=== PATIENT | male | born 1970 | race Two or more races ===

== ENCOUNTER 2024-01-27 11:31 | Inpatient (IN) | payer SELFPAY ==
[2024-01-27] VITALS (14 sets, daily range): BP systolic 102–152; BP diastolic 71–97; PULSE 91–111; RESP 16–20; TEMP 36.2–36.9; O2SAT 93–100; BMI 20.3
--- NOTE | 2024-01-27 11:33 | XRR_ITS ---
PROCEDURE INFORMATION: Exam: XR Right Foot Exam date and time: 01/27/2024 12:06 PM Age: 53 years old Clinical indication: Other: RT black big toe; Prior surgery; Surgery date: 6+ months; Surgery type: Right foot; Additional info: Injury, unspecified TECHNIQUE: Imaging protocol: Radiologic exam of the right foot. Views: 3 or more views. COMPARISON: No relevant prior studies available. FINDINGS: Bones/joints: Amputation at the 2nd toe MTP joint. Focal osteopenia of the lateral margin of the great toe distal phalanx. Soft tissues: Soft tissue wound about the great toe distally. XR/XR foot RT min 3V* [id number] IMPRESSION: Suspicion for early osteomyelitis changes of the great toe distal phalanx with surrounding ulcerative soft tissue wound. MRI recommended for further characterization.
--- NOTE | 2024-01-27 13:05 | ED_ITS ---
HPI - Extremity Problem General: Chief complaint: Extremity Injury, Lower Stated complaint: Right foot pain Time Seen by Provider: 01/27/24 12:59 Source: patient Mode of arrival: ambulatory Limitations: no limitations History of Present Illness: 53-year-old male with a history of diabe jose miguel he states that he has had discoloration to his right great toe he states since Friday. He states that he has no pain he had a prior amputation to the second toe of the left foot his toe is necrotic black and foul-smelling. Denies any known injuries. Associated symptoms: Deny chest pain, fever(s) or rash Review of Systems Const: Denies: fever(s), chills, body aches or change in appetite ENMT: Denies: throat pain or dental pain Card: Denies: chest pain Resp: Denies: dyspnea GI: Denies: abdominal pain, nausea, vomiting or diarrhea Musc: Reports: extremity pain; Denies: neck pain or back pain Skin/Breast: Denies: rash Neuro: Denies: headache(s) Physical Exam Const: COMMON NORMALS: no acute distress, patient oriented x3 and healthy appearing HENMT: COMMON NORMALS: normocephalic and atraumatic HEAD & SCALP: normocephalic and atraumatic Neck/C-Spine: COMMON NORMALS: full ROM and supple Chest: COMMONS NORMALS: normal inspection of the chest Resp: COMMON NORMALS: normal respiratory effort Cardio: COMMON NORMALS: regular rate, regular rhythm and No murmurs present (Cardio) RATE: regular rate RHYTHM: regular rhythm Extremity: NARRATIVE EXTREMITY EXAM: Necrotic great red toe with surrounding erythema that is foul-smelling Neuro: COMMON NORMALS: patient oriented x3, moves all extremities and no focal motor deficits Psych: COMMON NORMALS: mental status grossly normal, Normal thought process present and cooperative THOUGHT PROCESS: Normal thought process present Skin: COMMON NORMALS: no rashes or lesions noted and no wounds GENERAL SKIN EXAM: no rashes or lesions noted Course Vital Signs: Vital signs: Vital Signs Temperature 98.0 F 01/27/24 11:39 Pulse Rate 111 H 01/27/24 11:39 Respiratory Rate 16 01/27/24 11:39 Blood Pressure 107/73 01/27/24 11:39 Pulse Oximetry 95 01/27/24 11:39 Oxygen Delivery Me thod Room Air 01/27/24 11:39 MDM - Extremity (Nontraumatic) Medical Decision Making Patient presents here with necrotic toe to right great toe patient was seen in the ER by hospitalist along with podiatry Dr. Schmitt will admit at this time likely go to the OR for toe amputation patient started IV antibiotics. Medical Records I reviewed the patient's medical records. Lab Data I reviewed the patient's lab results. Radiology Impressions Foot X-Ray 01/27/24 11:33 IMPRESSION: Suspicion for early osteomyelitis changes of the great toe distal phalanx with surrounding ulcerative soft tissue wound. MRI recommended for further characterization. All radiology interpretation(s) finalized by discharge Discharge Plan Discharge Patient Disposition: Admitted As Inpatient Clinical Impression: Necrosis of toe Condition: Stable Prescriptions: No Action No Known Home Medications Coding Level of Care Code ED Asset Management Lead for Kimmie Holloway
[2024-01-27 13:32] LABS: Basophils # 0.1 10^3/uL (0.0-0.1); Basophils % 0.6 %; Eosinophils # 0.1 10^3/uL (0.0-0.8); Eosinophils % 0.9 %; Hematocrit 37.1 % (37-53); Lymphocytes # 0.7 10^3/uL (0.8-4.8); Lymphocytes % 6.7 %; Mean Corpuscular HGB Conc 33.4 g/dL (30-55); Mean Corpuscular Hemoglobin 30.8 pg (27-33); Mean Corpuscular Volume 92.3 fl (82-101); Mean Platelet Volume 10.1 fL (7.4-10.4); Monocytes # 1.2 10^3/uL (0.2-0.9); Monocytes % 11.4 %; Neutrophils # 8.47 10^3/uL (1.8-7.7); Nucleated Red Blood Cells % 0 %; Platelet Count 263 10^3/cmm (157-399); Red Blood Count 4.02 10^6/uL (3.85-5.65); Red Cell Distribution Width 12.4 % (12.1-15.1); White Blood Count 10.59 10^3/uL (3.29-11.43)
--- NOTE | 2024-01-27 13:34 | ED_ITS ---
HPI - Extremity Problem 2 General: Chief complaint: Extremity Injury, Lower Stated complaint: Right foot pain Time Seen by Provider: 01/27/24 12:59 Source: patient Mode of arrival: ambulatory Limitations: no limitations History of Present Illness: 53-year-old diabetic male presents with gas gangrene to his right great toe. Patient states that it started 2 days ago and rapidly progressed. Wound appears much older than that, has foul-smelling odor with wet gangrene. He is Wolof- speaking, utilizing an log pond worker at this time in the ED. Patient is known to me last year he underwent a amputation of the right second toe secondary to gangrene, at that point he followed up with me outpatient and went on to heal uneventfully, referral was made for to establish primary care, this is not shown on his current registration, will likely need emergent counts so we can see if he actually followed up with primary care. Associated symptoms: Deny chest pain or fever(s) Review of Systems 2 General: Reports: 10 or more systems reviewed and unremarkable except in HPI and below Const: Denies: fever(s) or chills Eyes: Denies: change in vision Card: Denies: chest pain or palpitations Resp: Denies: dyspnea or productive cough GI: Denies: abdominal pain, nausea or vomiting : Denies: flank pain Musc: Reports: extremity swelling, joint stiffness and deformity Skin/Breast: Reports: erythema, sores, changes in skin color, dry skin, nail changes and change in hair Neuro: Reports: numbness in extremities, sensory changes and difficulty walking Psych: Denies: suicidal ideation Endo: Denies: change in body appearance Bernardo/Lymph: Denies: tender lymph nodes Physical Exam 2 Narrative: EXAM NARRATIVE: GENERAL: Patient is alert and oriented ?3 and in no acute distress. The following is a focused bilateral lower extremity exam. VASCULAR: Dorsalis pedis palpable bilaterally. Posterior tibial arteries palpable. No capillary refill to the distal right hallux. Calf is supple and nontender proximally and distally. Decreased pedal hair growth bilaterally. Edema to the right medial forefoot. NEUROLOGICAL: Protective sensation intact 0/10 sites, tested with [place] Silvia monofilament to bilateral feet. DERMATOLOGICAL: Full-thickness wound probes to bone right hallux with dry eschar distally and wet margins consistent with wet gangrene, has foul malodor, proximal erythema streaking proximally to the dorsum of the midfoot. MUSCULOSKELETAL: History of right second toe amputation. No pain to palpation secondary to neuropathy. Course 2 Vital Signs: Vital signs: Vital Signs Temperature 98.0 F 01/27/24 11:39 Pulse Rate 111 H 01/27/24 11:39 Respiratory Rate 16 01/27/24 11:39 Blood Pressure 107/73 01/27/24 11:39 Pulse Oximetry 95 01/27/24 11:39 Oxygen Delivery Me thod Room Air 01/27/24 11:39 MDM - Extremity (Nontraumatic) Medical Decision Making Wet gangrene right foot Lab Data 01/27/24 13:22 01/27/24 13:22 Radiology Impressions Foot X-Ray 01/27/24 11:33 IMPRESSION: Suspicion for early osteomyelitis changes of the great toe distal phalanx with surrounding ulcerative soft tissue wound. MRI recommended for further characterization. Laboratory Results WBC 10.59 10^3/uL (3.29-11.43) 01/27/24 13:22 RBC 4.02 10^6/uL (3.85-5.65) 01/27/24 13:22 Hgb 12.40 g/dL (11.27-16.99) 01/27/24 13:22 Hct 37.1 % (37-53) 01/27/24 13:22 MCV 92.3 fl (82-101) 01/27/24 13:22 MCH 30.8 pg (27-33) 01/27/24 13:22 MCHC 33.4 g/dL (30-55) 01/27/24 13:22 RDW 12.4 % (12.1-15.1) 01/27/24 13:22 Plt Count 263 10^3/cmm (157-399) 01/27/24 13:22 MPV 10.1 fL (7.4-10.4) 01/27/24 13:22 Neut % (Auto) 80.0 % 01/27/24 13:22 Lymph % (Auto) 6.7 % 01/27/24 13:22 [place] % (Auto) 11.4 % 01/27/24 13:22 Eos % (Auto) 0.9 % 01/27/24 13:22 Baso % (Auto) 0.6 % 01/27/24 13:22 Neut # (Auto) 8.47 10^3/uL (1.8-7.7) H 01/27/24 13:22 Lymph # (Auto) 0.7 10^3/uL (0.8-4.8) L 01/27/24 13:22 [place] # (Auto) 1.2 10^3/uL (0.2-0.9) H 01/27/24 13:22 Eos # (Auto) 0.1 10^3/uL (0.0-0.8) 01/27/24 13:22 Baso # (Auto) 0.1 10^3/uL (0.0-0.1) 01/27/24 13:22 Nucleated RBC % (auto) 0 % 01/27/24 13:22 Nucleated RBCs # 0.0 /100WBC 01/27/24 13:22 ESR 91 mm/hr (0-10) H 01/27/24 13:22 Sodium 126 mmol/L (136-145) L 01/27/24 13:22 Potassium 4.5 mmol/L (3.5-5.1) 01/27/24 13:22 Chloride 86 mmol/L (98-107) L 01/27/24 13:22 Carbon Dioxide 21 mmol/L (22-29) L 01/27/24 13:22 Anion Gap 23.5 (5-19) H 01/27/24 13:22 BUN 6 mg/dL (6-20) 01/27/24 13:22 Creatinine 0.7 mg/dL (0.7-1.2) 01/27/24 13:22 GFR Calculation 118.0 mL/min (90-130) 01/27/24 13:22 Glucose 402 mg/dL (65-115) H 01/27/24 13:22 Calculated Osmolality 276 mOsm/kg (285-295) L 01/27/24 13:22 Calcium 8.5 mg/dL (8.5-10.5) 01/27/24 13:22 C-Reactive Protein 82.4 mg/L (0.0-4.9) H 01/27/24 13:22 Discharge Plan Discharge Patient Disposition: Admitted As Inpatient Clinical Impression: Necrosis of toe Condition: Stable Coding Level of Care Code ED Communications Equipment Supervisor for Kimmie Holloway
[2024-01-27 13:46] LABS: Erythrocyte Sedimentation Rate 91 mm/hr (0-10)
[2024-01-27 13:55] LABS: Anion Gap 23.5 (5-19); Blood Urea Nitrogen 6 mg/dL (6-20); C Reactive Protein 82.4 mg/L (0.0-4.9); Calcium 8.5 mg/dL (8.5-10.5); Carbon Dioxide 21 mmol/L (22-29); Chloride 86 mmol/L (98-107); Glucose 402 mg/dL (65-115); Osmolality Calculated 276 mOsm/kg (285-295); Potassium 4.5 mmol/L (3.5-5.1); Sodium 126 mmol/L (136-145)
--- NOTE | 2024-01-27 14:03 | P.CONIM_ITS ---
Providers/Reason For Consult 2 Consulting Physician/Specialty*: Neftali Schmitt D.P.M. Reason for Consult*: Wet gangrene right foot History of Present Illness History of Present Illness Jamie Swift is a 53 year old male presents with wet gangrene to the right great toe, per his report it started 2 days ago. He is accompanied by his friend who is acting as window unit air conditioning mechanic in the emergency department. Patient has a history of right second toe amputation secondary to gangrene that was done approximately 1 year ago, upon discharge and successful healing he was referred to establish primary care to help manage diabetes, I do not have record of this, this appears to be a second additional account with registration. Patient is in agreements that he would benefit from a partial foot amputation, planning on partial first ray of the right foot. Review of Systems 2 General: Reports: 10 or more systems reviewed and unremarkable except in HPI and below Const: Denies: fever(s) or chills Eyes: Denies: change in vision Card: Denies: chest pain or palpitations Resp: Denies: dyspnea or productive cough GI: Denies: abdominal pain, nausea or vomiting : Denies: flank pain Musc: Reports: extremity swelling, joint stiffness and deformity Skin/Breast: Reports: erythema, sores, changes in skin color, dry skin, nail changes and change in hair Neuro: Reports: numbness in extremities, sensory changes and difficulty walking Psych: Denies: suicidal ideation Endo: Denies: change in body appearance Bernardo/Lymph: Denies: tender lymph nodes Medications/Allergies Home Medications Medication Instructions Recorded Confirmed Last Taken Type No Known Home Medications 01/27/24 01/27/24 Unknown History Allergies Allergy/AdvReac Type Severity Reaction Status Date / Time No Known Allergies Allergy Verified 01/27/24 11:38 Vitals/I&O/Wt Last Vital Signs Temp 98.0 F 01/27/24 11:39 Pulse 111 H 01/27/24 11:39 Resp 16 01/27/24 11:39 BP 107/73 01/27/24 11:39 Pulse Ox 95 01/27/24 11:39 O2 Del Method Room Air 01/27/24 11:39 Weight last 48 hrs Weight 103 lb 9.876 oz Physical Exam 2 Narrative: GENERAL: Patient is alert and oriented ?3 and in no acute distress. The following is a focused bilateral lower extremity exam. VASCULAR: Dorsalis pedis palpable bilaterally. Posterior tibial arteries palpable. No capillary refill to the right distal hallux. Decreased pedal hair growth bilaterally. NEUROLOGICAL: Protective sensation intact 0/10 sites, tested with [place] Silvia monofilament to bilateral feet. DERMATOLOGICAL: Wet gangrene at the base of the right hallux with strong pungent malodor and probes to bone with devitalized tissue, distally at the right hallux is more stable eschar with dry gangrene distally. Erythema at the base of the right hallux streaking proximally to the dorsum of the right midfoot. MUSCULOSKELETAL: Crepitus with soft tissue palpation to the right hallux. Status post right second toe amputation. Data 01/27/24 13:22 01/27/24 13:22 Micro: Microbiology 01/27/24 13:22 Blood Culture - Preliminary Blood SPECIMEN COLLECTED A&P Assessment and plan (1) Diabetic wet gangrene of the foot: (2) Diabetic peripheral neuropathy associated with type 2 diabetes mellitus: (3) Cellulitis of right foot: Plan 53-year-old Iranian-speaking male presents with wet gangrene right great toe. Patient to be n.p.o. starting now. He last ate/drank at 8:00 this morning had a breakfast burrito Scheduled for partial first ray amputation today at 4:30 PM Admitted to the hospital service, started on empiric IV antibiotics. Wound culture was taken in the emergency department by myself, will also send deep surgical culture from the OR. Patient will likely require an extended stay at the hospital, plan is partial ray amputation today and once his soft tissue and skin envelope shows clinical improvement will return to the OR during his hospitalization for delayed closure if possible. Consult Attestations 2 Medical Necessity Statement: Wet gangrene right big toe Coding Level of Care Code Acute Code for [facility] Fwd Diagnoses Diabetic wet gangrene of the foot E11.52 Diabetic peripheral neuropathy associated with type 2 diabetes mellitus E11.42 Cellulitis of right foot L03.115
[2024-01-27] MEDS: vancomycin 1,000 MG in sodium chloride 0.9% 250 ML 250 MG IV (14:50)
--- NOTE | 2024-01-27 15:42 | P.HP_ITS ---
Providers/Chief Complaint 2 Admitting Physician: Gay Perea MD Primary Care Provider: None Chief Complaint: Right foot pain History of Present Illness Jamie Swift is a 53 year old male who presented to the emergency room with chief complaint of pain in his right foot. He indicates that he started having issues with that a couple of days ago but on examination he has evidence of distal dry gangrene and more proximal wet gangrene of the right great toe along with cellulitis extending to the right foot. Plain film shows likely early osteomyelitis changes. Patient has a history of diabetes but is not on any treatment for it. He has had a previous right second toe amputation last year with a similar presentation. Dr. Schmitt was consulted from the ER and plans to take Mr. Swift to surgery today with planned first ray amputation. History is obtained from patient with help of Mr Cash Walton [phone] providing translation assistance. Patient did not have any issues with his amputation last year from an anesthesia standpoint. No history of heart problems, kidney problems, stroke, or known cancer. Previously drank heavily but quit a couple of months ago. Does not smoke or use any drugs. No history of any bleeding problems. Occasionally will have headaches when he is working but really no other problems beyond the right foot pain. Denied any chest pain, breathing difficulty, changes in bowel or bladder function. In the emergency room he was noted to have glucose greater than 400. Sodium was low BUN and creatinine were normal at 6/0.7. Baseline CRP was 82.4. He received a dose of vancomycin. Review of Systems 2 General: Reports: Other (ROS as per HPI or as otherwise noted here) Medications/Allergies Home Medications Medication Instructions Recorded Confirmed Last Taken Type No Known Home Medications 01/27/24 01/27/24 Unknown History Allergies Allergy/AdvReac Type Severity Reaction Status Date / Time No Known Allergies Allergy Verified 01/27/24 11:38 PFSH Acute 2 PFSH: Medical History (Updated 01/27/24 @ 16:08 by Gay Perea MD) Diabetes mellitus type II, uncontrolled Surgical History (Updated 01/27/24 @ 15:48 by Gay Perea MD) Status post amputation of toe of right foot 2022 2nd digit right root Family History (Updated 01/27/24 @ 15:49 by Gay Perea MD) Other Cancer Social History (Updated 01/27/24 @ 15:48 by Gay Perea MD) Smoking and tobacco/nicotine status: never used tobacco/nicotine Alcohol intake: former Former alcohol use details: quit drinking heavily in Nov 2023 Substance/Drug Use: never Additional social history: Does not speak Monegasque Vitals/I&O/Wt Last Vital Signs Temp 98.0 F 01/27/24 11:39 Pulse 102 H 01/27/24 14:27 Resp 16 01/27/24 11:39 BP 139/93 01/27/24 14:27 Pulse Ox 97 01/27/24 14:27 O2 Del Method Room Air 01/27/24 14:27 Weight last 48 hrs Weight 47 kg Physical Exam 2 Narrative: Patient is awake and alert. Smiling. Normocephalic. Answers questions has translated to him without difficulty. Dry lips and oral mucosa. Poor dentition. Neck is supple. Lungs are clear to auscultation bilaterally without any rales rhonchi or wheezes noted. Cardiovascular exam reveals a tachycardic but regular rhythm. Abdomen is soft, nontender with positive bowel sounds. No pitting edema distally. Gangrenous changes of the right great toe as shown in pictures below. Erythema extends to roughly mid foot as also shown. Malodorous. Moves all extremities. No abnormal movements noted. Data 01/27/24 13:22 01/27/24 13:22 Other Labs: Radiology Impressions Foot X-Ray 01/27/24 11:33 IMPRESSION: Suspicion for early osteomyelitis changes of the great toe distal phalanx with surrounding ulcerative soft tissue wound. MRI recommended for further characterization. Laboratory Results WBC 10.59 10^3/uL (3.29-11.43) 01/27/24 13:22 RBC 4.02 10^6/uL (3.85-5.65) 01/27/24 13:22 Hgb 12.40 g/dL (11.27-16.99) 01/27/24 13:22 Hct 37.1 % (37-53) 01/27/24 13:22 MCV 92.3 fl (82-101) 01/27/24 13:22 MCH 30.8 pg (27-33) 01/27/24 13:22 MCHC 33.4 g/dL (30-55) 01/27/24 13:22 RDW 12.4 % (12.1-15.1) 01/27/24 13:22 Plt Count 263 10^3/cmm (157-399) 01/27/24 13:22 MPV 10.1 fL (7.4-10.4) 01/27/24 13:22 Neut % (Auto) 80.0 % 01/27/24 13:22 Lymph % (Auto) 6.7 % 01/27/24 13:22 [place] % (Auto) 11.4 % 01/27/24 13:22 Eos % (Auto) 0.9 % 01/27/24 13:22 Baso % (Auto) 0.6 % 01/27/24 13:22 Neut # (Auto) 8.47 10^3/uL (1.8-7.7) H 01/27/24 13:22 Lymph # (Auto) 0.7 10^3/uL (0.8-4.8) L 01/27/24 13:22 [place] # (Auto) 1.2 10^3/uL (0.2-0.9) H 01/27/24 13:22 Eos # (Auto) 0.1 10^3/uL (0.0-0.8) 01/27/24 13:22 Baso # (Auto) 0.1 10^3/uL (0.0-0.1) 01/27/24 13:22 Nucleated RBC % (auto) 0 % 01/27/24 13:22 Nucleated RBCs # 0.0 /100WBC 01/27/24 13:22 ESR 91 mm/hr (0-10) H 01/27/24 13:22 Sodium 126 mmol/L (136-145) L 01/27/24 13:22 Potassium 4.5 mmol/L (3.5-5.1) 01/27/24 13:22 Chloride 86 mmol/L (98-107) L 01/27/24 13:22 Carbon Dioxide 21 mmol/L (22-29) L 01/27/24 13:22 Anion Gap 23.5 (5-19) H 01/27/24 13:22 BUN 6 mg/dL (6-20) 01/27/24 13:22 Creatinine 0.7 mg/dL (0.7-1.2) 01/27/24 13:22 GFR Calculation 118.0 mL/min (90-130) 01/27/24 13:22 Glucose 402 mg/dL (65-115) H 01/27/24 13:22 Calculated Osmolality 276 mOsm/kg (285-295) L 01/27/24 13:22 Calcium 8.5 mg/dL (8.5-10.5) 01/27/24 13:22 C-Reactive Protein 82.4 mg/L (0.0-4.9) H 01/27/24 13:22 Micro: Microbiology 01/27/24 14:20 Blood Culture - Preliminary Blood SPECIMEN COLLECTED 01/27/24 13:22 Blood Culture - Preliminary Blood SPECIMEN COLLECTED A&P Assessment and plan (1) Diabetic wet gangrene of the foot: Along with dry gangrene distally and likely underlying osteomyelitis. Has an elevated CRP as well as sed rate. Currently with normal white count although a bit of a left shift. Tachycardic but other vital signs are stable. At significant risk of progression to systemic infection with the sepsis without intervention. (2) Diabetes mellitus type II, uncontrolled: Not currently on any treatment but is a known diagnosis Qualifiers: Glycemic state: with hyperglycemia Qualified Code(s): E11.65 - Type 2 diabetes mellitus with hyperglycemia (3) Peripheral vascular disease due to secondary diabetes: Contributing to #1 (4) Hyponatremia: Some element of pseudohyponatremia but also suspect some early volume depletion from losses related to infection. (5) Dental caries: (6) Mexican speaking patient: Plan Inpatient admission Consult Dr. Schmitt Plan for surgery today Status post vancomycin in the emergency room, will continue and add Zosyn IV fluids Insulin therapy Add hemoglobin A1c with morning labs Check lipid panel Check arterial Dopplers Consult dietary for diabetic education which hopefully we can provide in Mexican take home materials. Mr. Walton indicates that they speak a dialect of Mexican that is not covered by most internet marketing manager services but Mexican is the closest to their samish language VTE prophylaxis: Lovenox post op when okay from surgical standpoint GI Prophylaxis: PPI Antibiotics: vancomycin and Zosyn Pending studies: blood culture and wound culture Telemetry: not currently indicated Low: not currently indicated Line(s): peripheral IVs Disposition plan: Home with outpatient follow up to podiatry, will need wound care which he hopefully can do himself. Per Dr Darrick addison, did well after last amputation but this covers a larger area Code Status: Full Code Supportive care otherwise Findings, concerns and plans were discussed with patient with internet marketing manager. Given an opportunity to ask questions. Attestations 2 Medical Necessity Statement*: Anticipated stay greater than two midnights in this patient presenting with dry and wet gangrene of the right great toe who will require surgical intervention and antibiotic therapy plus close monitoring postoperatively. Is a known diabetic not on treatment which we will also plan to institute. Diagnoses Diabetic wet gangrene of the foot E11.52 Uncontrolled type 2 diabetes mellitus with hyperglycemia E11.65 Glycemic state: with hyperglycemia Peripheral vascular disease due to secondary diabetes E13.51 Hyponatremia E87.1 Dental caries K02.9 Mexican speaking patient
--- NOTE | 2024-01-27 16:06 | P.ANESASSM_ITS ---
Pre-Anesthetic Assessment Height/Weight: Height 1.52 m Weight 47 kg Temp Pulse Resp BP Pulse Ox O2 Del Method 98.0 F 107 H 16 139/93 100 Room Air 01/27/24 11:39 01/27/24 15:15 01/27/24 11:39 01/27/24 14:45 01/27/24 15:15 01/27/24 15:15 Preop Diagnosis: Gas gangrene right foot Operation Date: 01/27/24 16:20 Proposed Procedures p Ray Resection Partial Ray Resection right foot(Right) - TRACY LanierM Social No tobacco Exam alert, oriented x 3, clear to auscultation bilaterally and regular rate & rhythm Airway Submandibular: within normal limits Cervical ROM: within normal limits Mallampati: Class I Metabolic Diabetes Mellitus not taking meds Anesthetic Plan ASA status: 3 Anesthesia: MAC Risk of > 500 ml blood loss (7ml/kg in children): No Other Pertinent Information allocations clerk used Medications/Allergies Home Medications Medication Instructions Recorded Confirmed Last Taken Type No Known Home Medications 01/27/24 01/27/24 Unknown History Allergies Allergy/AdvReac Type Severity Reaction Status Date / Time No Known Allergies Allergy Verified 01/27/24 11:38 [facility] Anesthesia Medical History (Updated 01/27/24 @ 16:08 by Gay Perea MD) Diabetes mellitus type II, uncontrolled Surgical History (Updated 01/27/24 @ 15:48 by Gay Perea MD) Status post amputation of toe of right foot 2022 2nd digit right root Family History (Updated 01/27/24 @ 15:49 by Gay Perea MD) Other Cancer Social History (Updated 01/27/24 @ 15:48 by Gay Perea MD) Smoking and tobacco/nicotine status: never used tobacco/nicotine Alcohol intake: former Former alcohol use details: quit drinking heavily in Nov 2023 Substance/Drug Use: never Additional social history: Does not speak Paraguayan Data Anesthesia 01/27/24 13:22 01/27/24 13:22 Short CBC 01/27/24 Range/Units 13:22 WBC 10.59 (3.29-11.43) 10^3/uL Hgb 12.40 (11.27-16.99) g/dL Hct 37.1 (37-53) % MCV 92.3 (82-101) fl Plt Count 263 (157-399) 10^3/cmm Neut % (Auto) 80.0 % Neut # (Auto) 8.47 H (1.8-7.7) 10^3/uL BMP 01/27/24 13:22 Sodium 126 L Potassium 4.5 Chloride 86 L Carbon Dioxide 21 L BUN 6 Creatinine 0.7 Glucose 402 H Calcium 8.5 Coags 01/27/24 13:22 ESR 91 H C-Reactive Protein 82.4 H Microbiology 01/27/24 14:20 Blood Culture - Preliminary Blood SPECIMEN COLLECTED 01/27/24 13:22 Blood Culture - Preliminary Blood SPECIMEN COLLECTED Cardiac Studies: 2 No Data to Display
--- NOTE | 2024-01-27 16:16 | P.HPUD_ITS ---
Surgery/Procedure H&P Update DATE OF PROCEDURE: January 27, 2024 DATE H&P PERFORMED: 01/27/24 H&P UPDATE INFORMATION: I have reviewed H&P completed within last 30 days, I have examined patient prior to procedure, No changes to prior documentation and H[place] is [place] [facility] date indicated PREOP DIAGNOSIS: Gas gangrene right foot PLANNED PROCEDURE: Operation Date: 01/27/24 16:20 Proposed Procedures p Ray Resection Partial Ray Resection right foot(Right) - Neftali Schmitt DPM
[2024-01-27] MEDS: BUPivacaine 0.5% INJ 30 mL 20 ML INJECTION (16:55)
[2024-01-27] MEDS: lidocaine 1% INJ 10 mL (per mL) 20 ML INJECTION (16:56)
--- NOTE | 2024-01-27 16:56 | P.BOP_ITS ---
Date of Procedure: 01/27/24 Surgeon: Neftali Schmitt DPM Director Of [employer]col[employer]iate [employer](s): Yousif Procedure(s) performed: Partial first ray amputation right foot Findings of the procedure(s): Gas gangrene right foot Estimated blood loss: 10 mL Specimen(s) removed: Right great toe sent to pathology for gross. Deep soft tissue sent to microbiology from right great toe intraoperatively as surgical cultures for Gram stain, culture and sensitivity Post-operative diagnosis: Gas gangrene right foot Transfer to [facility] for IV antibiotics, will monitor closely for clinical response and improve soft tissue, if soft tissue envelope improves will return to the operating room during this hospitalization for further debridement and primary delayed closure.
--- NOTE | 2024-01-27 16:57 | P.OP_ITS ---
Operative Report Date of procedure: January 27, 2024 Pre-op diagnosis: Gas gangrene right great toe Post-op diagnosis: Gas gangrene right great toe Post-op findings: Gas gangrene right great toe Procedure done: Right great toe amputation at metatarsal phalangeal joint. CPT code 83603 Implants: None Specimens removed/disposition: Deep soft tissue right great toe sent to microbiology for Gram stain, culture and sensitivity Pathology: Right great toe sent to pathology for permanent Surgeon: Neftali Schmitt DPM Ambulance Paramedic: Yousif Estimated blood loss: 10 6 IV fluids: See intraoperative documentation Urine output: none Complications: None Findings: Gas gangrene right great toe Brief History: Patient presents with gas gangrene to the right great toe. Recommended right great toe amputation, admission to the hospital service with IV antibiotics and likely staged surgical approach with delayed closure once soft tissue response to source control and antibiotics. Patient is agreeable wishes to proceed. I reviewed at length with the patient, the risks, potential complications, benefits, alternatives, expectations, and typical outcomes associated with the surgery. The risks and potential complications were explained in detail, including but not limited to infection, wound dehiscence or soft tissue complications, bleeding and hematoma, chronic edema, neuritis or nerve damage producing numbness or chronic pain, CRPS, failure to relieve pain or worsening pain, thick / painful / unsightly scar, limited motion / stiffness, malposition, delayed union, malunion, or nonunion, fracture, reaction to implants, anesthetic complications, venous thromboembolism, and deformity recurrence. I discussed the notion of no regrets with the patient as it pertains to complications and outcomes. The patient seemed to understand the nature of the proposed care and required convalescence. They asked appropriate questions, answered to their satisfaction. They are aware no guarantees can be made as to a satisfactory outcome and they understand there may be other possible unforeseen complications or outcomes not listed here that will be treated accordingly if they arise. Ther e were no written or implied guarantees given to the patient. They gave informed consent to proceed. Procedure: Under mild sedation the patient was brought to the operating room and remained on the gurney in supine position. A timeout was performed. Anesthesia was then administered by the anesthesia service. Local anesthesia injected by myself co nsisting of 30 cc of one-to-one mixture 1% lidocaine and 0.5% Marcaine plain and a right Chauhan block fashion. Well-padded pneumatic tourniquet applied to the right ankle. The right lower extremity was scrubbed, prepped and draped utilizing normal aseptic technique. Right foot was elevated and tourniquet inflated to 250 mmHg. Attention was directed to the right great toe where eschar was appreciated distally and wet gangrene was appreciated proximally at the base of the right hallux. A circumferential incision was performed at the base of the right great toe through skin and down to bone circumferentially and disarticulated the right great toe at the metatarsal phalangeal joint which was then passed from the operative field and sent to pathology for permanent. Deep soft tissue that was devitalized at the layer of the myofascial layer was incised and passed from the operative field and sent to microbiology for Gram stain, culture and sensitivity to help guide antibiotic therapies moving forward. The wound was then debrided of devitalized tissue sharply with pickups and a 15 blade and irrigated with copious amounts of sterile saline solution. Due to the extent of infection and cellulitis at the surrounding soft tissue patient's wound will be left open to continue antibiotic therapies on the floor and monitor closely for improvement, planning on primary delayed closure when appropriate. Tourniquet was deflated when a hyperemic response was noted to the remaining distal digits of the right foot. Incision was dressed with saline wet-to-dry utilizing 4 x 4 gauze, Kerlix, ABD pad, Coban. Patient tolerated the procedure and anesthesia well and was transferred to the PACU with vital signs stable and vascular status intact. Following a period of postoperative monitoring he will be transferred back to the floor to continue empiric IV antibiotics. He may be heel touch only for transfers to the right lower extremity and is to elevate his right foot while resting. Podiatry will round at least once daily for dressing changes and reevaluation.
--- NOTE | 2024-01-27 17:05 | ANE.PACU2 ---
Inpatient post-anesthesia follow up: Vital signs: Temperature 98.5 F Pulse Rate 110 Respiratory Rate 20 Blood Pressure 149/97 Pulse Oximetry 98 Oxygen Delivery Me thod Room Air Oxygen Flow Rate Fraction of Inspir ed Oxygen Hydration adequate: Yes Nausea and vomiting: No Mental status: Baseline Additional Comments: no apparent anesthetic complications noted
--- NOTE | 2024-01-27 17:28 | USCV_ITS ---
Jamie Swift Age: 53 Gender: M : 1970 Exam Date: 01/27/2024 18:59 Ordering Phys: Gay Perea MD Technologist: RADHA Exam Location: [facility] [place] Indication: Dr. Schmitt wants LLE arterial Doppler tonight. Patient is uncontrolled diabetic s/p RIGHT 1st toe amputation today. Risk Factors: uncontrolled diabetes Previous Vascular Surgery: RIGHT 1st toe amputation today. RIGHT LEFT BP: 121.0 / BP: 115.0/ 0 0 Waveform Velocity (cm/s) Velocity (cm/s) Waveform Iliac Prox 85.0 Triphasic Iliac Mid 104.0 Triphasic Iliac Distal 50.0 Triphasic HEAD ATHLETIC TRAINER 57.3 Triphasic SFA Prox 64.0 Triphasic SFA Mid 59.0 Triphasic SFA Dist 34.0 Triphasic POP 39.0 Triphasic UNIX SYSTEM ADMINISTRATOR 24.0 Triphasic DPA 87.0 Triphasic CITLALI 0.9 FINDINGS The Doppler examination of the left lower extremity arteries revealed minimal intimal thickening with no unstable plaques or lesions. The resting CITLALI 0.9 CONCLUSIONS 1. Near normal resting CITLALI on the left side 2. No significant plaques or unstable lesions. 3. No significant arterial obstruction based on the above findings Dr Tran Castaneda MD [facility] (Electronically Signed) Final Date: 28 January 2024 10:04 S
[2024-01-27 18:05] LABS: Glucose Point of Care 262 mg/dL (70-110)
[2024-01-27] MEDS: sodium chlor 0.9% + KCl 20 mEq 20 MEQ/1,000 ML BAG 100 MEQ IV (18:05)
[2024-01-27] MEDS: piperacillin-tazobactam 3.375 GM in sodium chloride 0.9% (plus) 50 ML IV (18:05)
[2024-01-27] MEDS: insulin lispro 100 unit/1 mL SUBCUT ×2 (18:06→21:21)
[2024-01-27 20:02] LABS: Glucose Point of Care 381 mg/dL (70-110)
[2024-01-28] VITALS (8 sets, daily range): BP systolic 92–130; BP diastolic 60–82; PULSE 94–102; RESP 14–18; TEMP 36.4–36.8; O2SAT 91–97
[2024-01-28] MEDS: piperacillin-tazobactam 3.375 GM in sodium chloride 0.9% (plus) 50 ML IV ×3 (01:17→17:01)
[2024-01-28] MEDS: sodium chlor 0.9% + KCl 20 mEq 20 MEQ/1,000 ML BAG 100 MEQ IV (03:48)
[2024-01-28 05:15] LABS: Basophils % 0.4 %; Eosinophils # 0.1 10^3/uL (0.0-0.8); Eosinophils % 1.6 %; Hematocrit 34.1 % (37-53); Lymphocytes # 0.9 10^3/uL (0.8-4.8); Lymphocytes % 10.8 %; Mean Corpuscular HGB Conc 33.7 g/dL (30-55); Mean Corpuscular Hemoglobin 30.4 pg (27-33); Mean Corpuscular Volume 90.2 fl (82-101); Mean Platelet Volume 9.7 fL (7.4-10.4); Monocytes # 0.9 10^3/uL (0.2-0.9); Monocytes % 11.1 %; Neutrophils % 75.7 %; Nucleated Red Blood Cells % 0 %; Platelet Count 235 10^3/cmm (157-399); Red Blood Count 3.78 10^6/uL (3.85-5.65); Red Cell Distribution Width 12.6 % (12.1-15.1); White Blood Count 8.31 10^3/uL (3.29-11.43)
[2024-01-28 05:22] LABS: Erythrocyte Sedimentation Rate 73 mm/hr (0-10)
[2024-01-28 05:36] LABS: Estmated Average Glucose 295; Hemoglobin A1C 11.9 % (4.0-6.0)
[2024-01-28 05:51] LABS: Alanine Aminotransferase 29 U/L (0-41); Albumin Level 2.7 g/dL (3.5-5.2); Alkaline Phosphatase 240 U/L (40-130); Anion Gap 19.6 (5-19); Aspartate Amino Transferase 59 U/L (0-40); Blood Urea Nitrogen 6 mg/dL (6-20); C Reactive Protein 70.5 mg/L (0.0-4.9); Calcium 7.7 mg/dL (8.5-10.5); Carbon Dioxide 22 mmol/L (22-29); Chloride 96 mmol/L (98-107); Creatinine Clr Calc Pharmacy 151.1625; Globulin 3.9 g/dL (1.3-4.6); Glomerular Filtration Rate 173.9 mL/min (90-130); Glucose 273 mg/dL (65-115); Magnesium 1.5 mg/dL (1.7-2.3); Osmolality Calculated 283 mOsm/kg (285-295); Phosphorus 2.1 mg/dL (2.5-4.5); Potassium 4.6 mmol/L (3.5-5.1); Sodium 133 mmol/L (136-145); Total Bilirubin 0.9 mg/dL (0.15-1.2); Total Protein 6.6 g/dL (6.6-8.7)
[2024-01-28 05:54] LABS: Chol HDL Ratio 3.33 mg/dL (1.0-5.00); Cholesterol 100 mg/dL (0-200); HDL Cholesterol 30 mg/dL (60-100); LDL Cholesterol Calculated 44 mg/dL (50-129); LDL HDL Ratio 1.47 RATIO (0.00-3.22); Triglycerides 129 mg/dL (0-150)
[2024-01-28 06:55] LABS: Glucose Point of Care 301 mg/dL (70-110)
--- NOTE | 2024-01-28 07:41 | P.PN_ITS ---
Subjective 2 Subjective: Patient seen bedside this morning, he is 1 day status post right great toe amputation secondary to gas gangrene. Denies any acute events overnight. Tolerating regular diet. Surgical dressings are clean and intact. Vitals/I&O/Wt Last Vital Signs Temp 98.0 F 01/28/24 07:20 Pulse 99 01/28/24 07:20 Resp 14 01/28/24 07:20 BP 130/81 01/28/24 07:20 Pulse Ox 94 01/28/24 07:20 O2 Del Method Room Air 01/28/24 07:20 01/27/24 01/28/24 01/28/24 22:59 06:59 14:59 Intake Total 350 / 350 1400 / 1750 Output Total 960 / 960 550 / 1510 Balance -610 / -610 850 / 240 Weight last 48 hrs Weight 137 lb 14.4 oz Weight 103 lb 9.876 oz Physical Exam 2 Narrative: GENERAL: Patient is alert and oriented ?3 and in no acute distress. The following is a focused bilateral lower extremity exam. VASCULAR: Dorsalis pedis palpable bilaterally. Posterior tibial arteries palpable. No capillary refill to the right distal hallux. Decreased pedal hair growth bilaterally. NEUROLOGICAL: Protective sensation intact 0/10 sites, tested with [place] Silvia monofilament to bilateral feet. DERMATOLOGICAL: Subsiding cellulitis of the right forefoot, surgical amputation site left open able to visualize the head of the first metatarsal which demonstrates some color changes to the cartilage, surrounding soft tissue is questionable, will require further antibiotic therapy. MUSCULOSKELETAL: Status post right second toe amputation. Status post right great toe amputation Data 01/28/24 04:48 01/28/24 04:48 Micro: Microbiology 01/27/24 14:20 Blood Culture - Preliminary Blood SPECIMEN COLLECTED 01/27/24 13:22 Blood Culture - Preliminary Blood SPECIMEN COLLECTED A&P Assessment and plan (1) Diabetic wet gangrene of the foot: (2) Diabetic peripheral neuropathy associated with type 2 diabetes mellitus: (3) Cellulitis of right foot: Plan 53-year-old Puerto Rican-speaking male presents with wet gangrene right great toe. Right great toe amputation performed 01/27/2024 secondary to gas gangrene Recommend continuation of empiric IV antibiotics and monitor for improvement of surrounding soft tissue amputation site. Dressing change performed this a.m., march heel touch for transfers with postop shoe to the right foot. Hopeful that delayed closure can be performed this Friday pending soft tissue quality. Questionable if PICC line will be needed at this point, we will need to await blood cultures Podiatry will continue to round daily. Attestations 2 Medical Necessity Statement*: Gangrene right foot Coding Level of Care Code Acute Code for [facility] Fwd Diagnoses Diabetic wet gangrene of the foot E11.52 Diabetic peripheral neuropathy associated with type 2 diabetes mellitus E11.42 Cellulitis of right foot L03.115
[2024-01-28] MEDS: insulin lispro 100 unit/1 mL SUBCUT ×4 (08:22→20:23)
[2024-01-28] MEDS: pantoprazole DR 40 mg Tablet PO (08:23)
--- NOTE | 2024-01-28 09:45 | PM.PN ---
Subjective Subjective: Plan for primary delayed closure by Dr. Schmitt Use medical library assistant to speak with the patient He does not have insurance We have to arrange diabetic education, insulin at the time of discharge Will touch with Dr. Schmitt regarding p.o. versus IV antibiotics Afebrile, not complaining active pain Hemodynamically stable White count is 8.3 hemoglobin is stable hemoglobin A1c is 11.9 Low mag and phosphorus noted Vitals/I&O/Wt Last Vital Signs Temp 98.0 F 01/28/24 07:20 Pulse 99 01/28/24 07:20 Resp 14 01/28/24 07:20 BP 130/81 01/28/24 07:20 Pulse Ox 94 01/28/24 07:20 O2 Del Method Room Air 01/28/24 07:20 01/27/24 01/28/24 01/28/24 22:59 06:59 14:59 Intake Total 350 / 350 1400 / 1750 Output Total 960 / 960 550 / 1510 300 / 300 Balance -610 / -610 850 / 240 -300 / -300 Weight last 48 hrs Weight 62.55 kg Weight 47 kg Physical Exam Narrative: Patient laying supine Currently on room air Pleasant cooperative Chadian-speaking GCS 15 Nonfocal neuroexam Right foot covered with dressing No active pain Hemodynamically stable S1, S2 Data 01/28/24 04:48 01/28/24 04:48 Micro: Microbiology 01/27/24 14:20 Blood Culture - Preliminary Blood SPECIMEN COLLECTED 01/27/24 13:22 Blood Culture - Preliminary Blood SPECIMEN COLLECTED A&P Assessment and plan (1) Diabetes mellitus type II, uncontrolled: Qualifiers: Glycemic state: with hyperglycemia Qualified Code(s): E11.65 - Type 2 diabetes mellitus with hyperglycemia (2) Peripheral vascular disease due to secondary diabetes: (3) Hyponatremia: (4) Dental caries: (5) Cellulitis of right foot: (6) Necrosis of toe: (7) Diabetic wet gangrene of the foot: (8) Diabetic peripheral neuropathy associated with type 2 diabetes mellitus: (9) Chadian speaking patient: (10) Hypomagnesemia: (11) Hypophosphatemia: Plan Diabetic foot ulcer/wet gangrene Status post intervention by Dr. Schmitt Postop day 1 No postoperative complications I will discontinue IV fluids patient is tolerating his diet Continue broad-spectrum antibiotics Afebrile Will wait for bone cultures Uncontrolled type 2 diabetes Would need insulin at the time of discharge Will arrange diabetic education as well DVT prophylaxis covered with Lovenox Plan for primary delayed closure by Dr. Schmitt Full code Consistent carb diet Insulin sliding scale I will add Lantus 15 units Replenish magnesium and phosphorus via p.o. regimen Full code Attestations Medical Necessity Statement*: Continue medical management Diagnoses Uncontrolled type 2 diabetes mellitus with hyperglycemia E11.65 Glycemic state: with hyperglycemia Peripheral vascular disease due to secondary diabetes E13.51 Hyponatremia E87.1 Dental caries K02.9 Cellulitis of right foot L03.115 Necrosis of toe I96 Diabetic wet gangrene of the foot E11.52 Diabetic peripheral neuropathy associated with type 2 diabetes mellitus E11.42 Chadian speaking patient Hypomagnesemia E83.42 Hypophosphatemia E83.39
[2024-01-28] MEDS: vancomycin 1,000 MG in sodium chloride 0.9% 250 ML 250 MG IV (10:57)
[2024-01-28] MEDS: oxyCODONE 5 mg IR Tab/Cap PO ×2 (10:58→17:01)
[2024-01-28] MEDS: phosphorus 250 mg Tablet PO ×2 (10:58→17:01)
[2024-01-28 11:03] LABS: Glucose Point of Care 252 mg/dL (70-110)
[2024-01-28] MEDS: HYDROcodone-acetaminophen 5-325 mg Tablet 1 TAB PO ×2 (14:04→20:24)
[2024-01-28 16:47] LABS: Glucose Point of Care 365 mg/dL (70-110)
[2024-01-28] MEDS: magnesium oxide 400 mg tablet PO (17:01)
[2024-01-28] MEDS: enoxaparin 40 mg/0.4 mL Syringe SUBCUT (17:01)
[2024-01-28 20:19] LABS: Glucose Point of Care 214 mg/dL (70-110)
[2024-01-28] MEDS: insulin glargine 100 units/1 mL 15 UNIT SUBCUT (20:25)
[2024-01-29] VITALS: BP 116/74; PULSE 98; RESP 18; TEMP 36.7; O2SAT 93
[2024-01-29] MEDS: piperacillin-tazobactam 3.375 GM in sodium chloride 0.9% (plus) 50 ML IV ×3 (01:46→17:13)
[2024-01-29] MEDS: HYDROcodone-acetaminophen 5-325 mg Tablet 1 TAB PO (01:48)
[2024-01-29 04:00] VITALS: BP 120/75; PULSE 88; RESP 18; TEMP 36.8; O2SAT 92
[2024-01-29] MEDS: vancomycin 1,000 MG in sodium chloride 0.9% 250 ML 250 MG IV ×2 (05:49→23:05)
[2024-01-29 06:36] LABS: Basophils % 0.4 %; Eosinophils # 0.2 10^3/uL (0.0-0.8); Eosinophils % 2.5 %; Hematocrit 32.7 % (37-53); Lymphocytes # 1.1 10^3/uL (0.8-4.8); Lymphocytes % 15.6 %; Mean Corpuscular HGB Conc 33.9 g/dL (30-55); Mean Corpuscular Hemoglobin 30.1 pg (27-33); Mean Corpuscular Volume 88.6 fl (82-101); Monocytes # 0.8 10^3/uL (0.2-0.9); Monocytes % 11.8 %; Neutrophils # 4.81 10^3/uL (1.8-7.7); Neutrophils % 69.4 %; Nucleated Red Blood Cells % 0 %; Platelet Count 211 10^3/cmm (157-399); Red Blood Count 3.69 10^6/uL (3.85-5.65); Red Cell Distribution Width 12.5 % (12.1-15.1); White Blood Count 6.93 10^3/uL (3.29-11.43)
[2024-01-29 06:46] LABS: Glucose Point of Care 355 mg/dL (70-110)
[2024-01-29 07:03] LABS: Anion Gap 14.2 (5-19); Blood Urea Nitrogen 5 mg/dL (6-20); Calcium 7.6 mg/dL (8.5-10.5); Carbon Dioxide 26 mmol/L (22-29); Chloride 92 mmol/L (98-107); Creatinine Clr Calc Pharmacy 202.3838; Glucose 235 mg/dL (65-115); Osmolality Calculated 273 mOsm/kg (285-295); Potassium 3.2 mmol/L (3.5-5.1); Sodium 129 mmol/L (136-145)
[2024-01-29 07:25] VITALS: BP 123/79; PULSE 80; RESP 17; TEMP 36.8; O2SAT 96
[2024-01-29 07:27] LABS: Glucose Point of Care 212 mg/dL (70-110)
[2024-01-29] MEDS: insulin lispro 100 unit/1 mL SUBCUT ×6 (07:48→20:55)
[2024-01-29] MEDS: sennosides-docusate Tablet 1 TAB PO (07:49)
[2024-01-29] MEDS: pantoprazole DR 40 mg Tablet PO (07:49)
[2024-01-29] MEDS: magnesium oxide 400 mg tablet PO ×2 (07:49→17:13)
[2024-01-29] MEDS: phosphorus 250 mg Tablet PO ×2 (07:49→17:14)
--- NOTE | 2024-01-29 08:25 | P.PN_ITS ---
Subjective 2 Subjective: Patient seen bedside this morning, he is 2 days status post right great toe amputation secondary to gas gangrene. Denies any acute events overnight. Tolerating regular right foot dressings are clean and intact. Vitals/I&O/Wt Last Vital Signs Temp 98.2 F 01/29/24 07:25 Pulse 80 01/29/24 07:25 Resp 17 01/29/24 07:25 BP 123/79 01/29/24 07:25 Pulse Ox 96 01/29/24 07:25 O2 Del Method Room Air 01/29/24 07:25 01/28/24 01/29/24 01/29/24 22:59 06:59 14:59 Intake Total 990 / 2290 1200 / 3490 Output Total 700 / 1400 575 / 1975 Balance 290 / 890 625 / 1515 Weight last 48 hrs Weight 147 lb 11.2 oz Weight 137 lb 14.4 oz Weight 103 lb 9.876 oz Physical Exam 2 Narrative: GENERAL: Patient is alert and oriented ?3 and in no acute distress. The following is a focused bilateral lower extremity exam. VASCULAR: Dorsalis pedis palpable bilaterally. Posterior tibial arteries palpable. No capillary refill to the right distal hallux. Decreased pedal hair growth bilaterally. NEUROLOGICAL: Protective sensation intact 0/10 sites, tested with [place] Silvia monofilament to bilateral feet. DERMATOLOGICAL: Subsiding cellulitis of the right forefoot, surgical amputation site left open able to visualize the head of the first metatarsal which demonstrates some color changes to the cartilage, surrounding soft tissue is questionable, will require further antibiotic therapy. MUSCULOSKELETAL: Status post right second toe amputation. Status post right great toe amputation Data 01/29/24 05:16 01/29/24 05:16 Micro: Microbiology 01/27/24 14:20 Blood Culture - Preliminary Blood NEGATIVE TO DATE 01/27/24 13:22 Blood Culture - Preliminary Blood NEGATIVE TO DATE 01/27/24 16:50 Gram Stain - Final Foot - #1 Tissue Culture - Preliminary Gram Negative Rods 01/27/24 13:36 Gram Stain - Final Toe - #1 Wound Culture - Preliminary A&P Assessment and plan (1) Diabetic wet gangrene of the foot: (2) Diabetic peripheral neuropathy associated with type 2 diabetes mellitus: (3) Cellulitis of right foot: Plan 53-year-old Upper Sorbian-speaking male presents with wet gangrene right great toe. Right great toe amputation performed 01/27/2024 secondary to gas gangrene Receiving empiric IV antibiotics. Dressing change performed this a.m., may heel touch for transfers with postop shoe to the right foot. Patient scheduled for primary delayed closure tomorrow 01/30/2024 From podiatry standpoint not planning on PICC line, will need to monitor for blood cultures to determine whether PICC line is indicated, they are negative to date. Would be okay for discharge from podiatry standpoint after tomorrow's procedure. Plan on weekly follow-up in podiatry clinic outpatient moving forward. Recommend referral to establish primary care. Podiatry will continue to round daily. Attestations 2 Medical Necessity Statement*: Gangrene right foot Coding Level of Care Code Acute Code for [facility] Fwd Diagnoses Diabetic wet gangrene of the foot E11.52 Diabetic peripheral neuropathy associated with type 2 diabetes mellitus E11.42 Cellulitis of right foot L03.115
[2024-01-29 08:27] LABS: Glucose Point of Care 250 mg/dL (70-110)
--- NOTE | 2024-01-29 09:21 | XR_ITS ---
WS: [id number] Right foot, 3 views, 01/29/2024 Clinical Data: Status post right great toe amputation Comparison: Right foot, 01/27/2024 Findings: The right great toe has been amputated. There is a soft tissue defect distal to the first metacarpal. The right second toe has been amputated. There is soft tissue swelling at the amputation site of the great toe. Impression: 1. Amputation of the right great toe. 2. Old amputation right second toe.
--- NOTE | 2024-01-29 09:45 | PM.PN ---
Subjective Subjective: Blood cultures negative to date Fluid culture showing gram-negative bambi Planning for p.o. antibiotic at the time of discharge Primary closure on Friday Afebrile No significant leukocytosis Patient not complaining active pain Patient is stating that his friend is at work until 1:30 PM Vitals/I&O/Wt Last Vital Signs Temp 98.2 F 01/29/24 07:25 Pulse 80 01/29/24 07:25 Resp 17 01/29/24 07:25 BP 123/79 01/29/24 07:25 Pulse Ox 96 01/29/24 07:25 O2 Del Method Room Air 01/29/24 07:25 01/28/24 01/29/24 01/29/24 22:59 06:59 14:59 Intake Total 990 / 2290 1200 / 3490 120 / 120 Output Total 700 / 1400 575 / 1975 Balance 290 / 890 625 / 1515 120 / 120 Weight last 48 hrs Weight 66.996 kg Weight 62.55 kg Weight 47 kg Physical Exam Narrative: Awake and alert Foot covered with dressing Pleasant cough Supine Nonfocal neuroexam No acute distress Data 01/29/24 05:16 01/29/24 05:16 Micro: Microbiology 01/27/24 14:20 Blood Culture - Preliminary Blood NEGATIVE TO DATE 01/27/24 13:22 Blood Culture - Preliminary Blood NEGATIVE TO DATE 01/27/24 16:50 Gram Stain - Final Foot - #1 Tissue Culture - Preliminary Gram Negative Rods 01/27/24 13:36 Gram Stain - Final Toe - #1 Wound Culture - Preliminary A&P Assessment and plan (1) Diabetes mellitus type II, uncontrolled: Qualifiers: Glycemic state: with hyperglycemia Qualified Code(s): E11.65 - Type 2 diabetes mellitus with hyperglycemia (2) Cellulitis of right foot: (3) Diabetic wet gangrene of the foot: (4) Necrosis of toe: (5) Diabetic peripheral neuropathy associated with type 2 diabetes mellitus: (6) Hyponatremia: Plan Postop day 2 status post amputation wet gangrene right toe gas gangrene No postop complications Hemoglobin stable Patient is still hyperglycemic I will add Premeal 3 units of Humalog Afebrile Blood cultures negative Plan to discharge him on oral antibiotics no need of PICC line as of now Patient is wanting to go home he is not interested in intermediate placement Primary delayed closure planned for Friday Continue IV opioids Continue lyndsay S Patient will need Guamanian diabetic education along high dose of Lantus and Humalog Premeal at the time of discharge Attestations Medical Necessity Statement*: Plan to discharge him in next 24 to 48 hours if remains stable Diagnoses Uncontrolled type 2 diabetes mellitus with hyperglycemia E11.65 Glycemic state: with hyperglycemia Cellulitis of right foot L03.115 Diabetic wet gangrene of the foot E11.52 Necrosis of toe I96 Diabetic peripheral neuropathy associated with type 2 diabetes mellitus E11.42 Hyponatremia E87.1
[2024-01-29 10:50] VITALS: BP 110/73; PULSE 93; RESP 17; TEMP 36.7; O2SAT 97
[2024-01-29 10:52] LABS: Glucose Point of Care 203 mg/dL (70-110)
[2024-01-29 16:00] VITALS: BP 119/80; PULSE 95; RESP 17; TEMP 36.8; O2SAT 90
[2024-01-29 16:24] LABS: Glucose Point of Care 258 mg/dL (70-110)
[2024-01-29 20:00] VITALS: BP 111/66; PULSE 92; RESP 18; TEMP 37.7; O2SAT 94
[2024-01-29 20:24] LABS: Glucose Point of Care 251 mg/dL (70-110)
[2024-01-29] MEDS: insulin glargine 100 units/1 mL 15 UNIT SUBCUT (20:56)
[2024-01-29 22:22] LABS: Vancomycin Trough < 4.0 ug/mL (10-15)
[2024-01-30] VITALS (11 sets, daily range): BP systolic 107–165; BP diastolic 71–100; PULSE 74–93; RESP 12–18; TEMP 36.1–37.2; O2SAT 94–98
[2024-01-30] MEDS: piperacillin-tazobactam 3.375 GM in sodium chloride 0.9% (plus) 50 ML IV ×2 (01:22→08:33)
[2024-01-30 06:02] LABS: Basophils % 0.7 %; Eosinophils # 0.2 10^3/uL (0.0-0.8); Hematocrit 34.4 % (37-53); Lymphocytes # 1.1 10^3/uL (0.8-4.8); Lymphocytes % 19.6 %; Mean Corpuscular HGB Conc 33.7 g/dL (30-55); Mean Corpuscular Hemoglobin 30.4 pg (27-33); Mean Corpuscular Volume 90.1 fl (82-101); Mean Platelet Volume 10.4 fL (7.4-10.4); Monocytes # 0.8 10^3/uL (0.2-0.9); Monocytes % 13.7 %; Neutrophils # 3.38 10^3/uL (1.8-7.7); Neutrophils % 61.8 %; Nucleated Red Blood Cells % 0 %; Platelet Count 215 10^3/cmm (157-399); Red Blood Count 3.82 10^6/uL (3.85-5.65); Red Cell Distribution Width 12.5 % (12.1-15.1); White Blood Count 5.47 10^3/uL (3.29-11.43)
[2024-01-30 06:17] LABS: Glucose Point of Care 191 mg/dL (70-110)
[2024-01-30] MEDS: vancomycin 1,000 MG in sodium chloride 0.9% 250 ML 250 MG IV ×2 (06:35→14:30)
[2024-01-30 06:54] LABS: Slide Review Slide Review Perform
[2024-01-30 07:02] LABS: Anion Gap 13.6 (5-19); Blood Urea Nitrogen 2 mg/dL (6-20); Calcium 8.4 mg/dL (8.5-10.5); Carbon Dioxide 28 mmol/L (22-29); Chloride 95 mmol/L (98-107); Creatinine Clr Calc Pharmacy 190.4605; Glucose 218 mg/dL (65-115); Osmolality Calculated 279 mOsm/kg (285-295); Potassium 3.6 mmol/L (3.5-5.1); Sodium 133 mmol/L (136-145)
[2024-01-30] MEDS: magnesium oxide 400 mg tablet PO (08:32)
[2024-01-30] MEDS: pantoprazole DR 40 mg Tablet PO (08:33)
[2024-01-30] MEDS: sennosides-docusate Tablet 1 TAB PO (08:33)
[2024-01-30] MEDS: phosphorus 250 mg Tablet PO (08:33)
--- NOTE | 2024-01-30 11:09 | P.DS_ITS ---
Discharge Providers Date of Admission: 01/27/24 14:32 Date of Discharge: January 30, 2024 Attending Provider at Admission: Gay Perea MD Attending Provider at Discharge: Aixa Beck MD Diagnoses at Discharge Discharge Diagnosis (1) Diabetes mellitus type II, uncontrolled: Status: Acute Qualifiers: Glycemic state: with hyperglycemia Qualified Code(s): E11.65 - Type 2 diabetes mellitus with hyperglycemia (2) Cellulitis of right foot: Status: Acute (3) Diabetic wet gangrene of the foot: Status: Acute (4) Necrosis of toe: Status: Acute (5) Diabetic peripheral neuropathy associated with type 2 diabetes mellitus: Status: Acute (6) Hyponatremia: Status: Acute Reason for Visit Reason for Visit: Right foot pain Hospital Course Hospital Course 53-year-old male Cambodian-speaking, was admitted for management evaluation of 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 Schmitt on 01/26, with primary delayed closure 01/29 no postoperative complication, patient remains poorly controlled on diabetes, I have prescribed insulin with sliding scale to [facility], will give him lisinopril for hypert ension, his hemoglobin A1c is 11.9, Tissue culture showing Enterobacter Cloacae, will prescribe doxycycline and levofloxacin for 14 days, blood cultures negative, Dr. Schmitt has controlled the source of infection, we have decided to treat with oral antibiotics at this point, no need of PICC line or IV antibiotics Dr. Schmitt will see him in the clinic next week Physical Exam Narrative: Awake and alert GCS 15 Pleasant cough Currently movement Hemodynamically stable Foot covered with dressing Discharge Data Studies Completed and Pending Completed Studies During Hospitalization Category Date Time Status XR foot RT min 3V* [id number] Routine Exams 01/29/24 09:21 Completed XR foot RT min 3V* [id number] Stat Exams 01/27/24 11:33 [place] [id number] Routine Ultrasound 01/27/24 17:28 Completed Pending at discharge Category Date Time Status Blood Culture Stat Lab 01/27/24 14:20 Results Vancomycin Trough Timed Lab 01/30/24 22:00 Ordered Wound Culture and Gram Stain Stat Lab 01/27/24 13:36 Results Pathology: Surgical [PTH] Routine Pth 01/27/24 17:00 Received Laboratory Results WBC 5.47 10^3/uL (3.29-11.43) 01/30/24 05:27 RBC 3.82 10^6/uL (3.85-5.65) L 01/30/24 05:27 Hgb 11.60 g/dL (11.27-16.99) 01/30/24 05:27 Hct 34.4 % (37-53) L 01/30/24 05:27 MCV 90.1 fl (82-101) 01/30/24 05:27 MCH 30.4 pg (27-33) 01/30/24 05:27 MCHC 33.7 g/dL (30-55) 01/30/24 05:27 RDW 12.5 % (12.1-15.1) 01/30/24 05:27 Plt Count 215 10^3/cmm (157-399) 01/30/24 05:27 MPV 10.4 fL (7.4-10.4) 01/30/24 05:27 Neut % (Auto) 61.8 % 01/30/24 05:27 Lymph % (Auto) 19.6 % 01/30/24 05:27 Vermilion % (Auto) 13.7 % 01/30/24 05:27 Eos % (Auto) 4.0 % 01/30/24 05:27 Baso % (Auto) 0.7 % 01/30/24 05:27 Neut # (Auto) 3.38 10^3/uL (1.8-7.7) 01/30/24 05:27 Lymph # (Auto) 1.1 10^3/uL (0.8-4.8) 01/30/24 05:27 Vermilion # (Auto) 0.8 10^3/uL (0.2-0.9) 01/30/24 05:27 Eos # (Auto) 0.2 10^3/uL (0.0-0.8) 01/30/24 05:27 Baso # (Auto) 0.0 10^3/uL (0.0-0.1) 01/30/24 05:27 Nucleated RBC % (auto) 0 % 01/30/24 05:27 Nucleated RBCs # 0.0 /100WBC 01/30/24 05:27 ESR 73 mm/hr (0-10) H 01/28/24 04:48 Sodium 133 mmol/L (136-145) L 01/30/24 05:27 Potassium 3.6 mmol/L (3.5-5.1) 01/30/24 05:27 Chloride 95 mmol/L (98-107) L 01/30/24 05:27 Carbon Dioxide 28 mmol/L (22-29) 01/30/24 05:27 Anion Gap 13.6 (5-19) 01/30/24 05:27 BUN 2 mg/dL (6-20) L 01/30/24 05:27 Creatinine 0.4 mg/dL (0.7-1.2) L 01/30/24 05:27 GFR Calculation 225.0 mL/min (90-130) H 01/30/24 05:27 Glucose 218 mg/dL (65-115) H 01/30/24 05:27 POC Glucose 191 mg/dL (70-110) H 01/30/24 06:13 Estimat Average Glucose 295 01/28/24 04:48 Hemoglobin A1c 11.9 % (4.0-6.0) H 01/28/24 04:48 Calculated Osmolality 279 mOsm/kg (285-295) L 01/30/24 05:27 Calcium 8.4 mg/dL (8.5-10.5) L 01/30/24 05:27 Phosphorus 2.1 mg/dL (2.5-4.5) L 01/28/24 04:48 Magnesium 1.5 mg/dL (1.7-2.3) L 01/28/24 04:48 Total Bilirubin 0.9 mg/dL (0.15-1.2) 01/28/24 04:48 AST 59 U/L (0-40) H 01/28/24 04:48 ALT 29 U/L (0-41) 01/28/24 04:48 Alkaline Phosphatase 240 U/L (40-130) H 01/28/24 04:48 C-Reactive Protein 70.5 mg/L (0.0-4.9) H 01/28/24 04:48 Total Protein 6.6 g/dL (6.6-8.7) 01/28/24 04:48 Albumin 2.7 g/dL (3.5-5.2) L 01/28/24 04:48 Globulin 3.9 g/dL (1.3-4.6) 01/28/24 04:48 Triglycerides 129 mg/dL (0-150) 01/28/24 04:48 Cholesterol 100 mg/dL (0-200) 01/28/24 04:48 LDL Cholesterol, Calc 44 mg/dL (50-129) L 01/28/24 04:48 HDL Cholesterol 30 mg/dL (60-100) L 01/28/24 04:48 LDL/HDL Ratio 1.47 RATIO (0.00-3.22) 01/28/24 04:48 Cholesterol/HDL Ratio 3.33 mg/dL (1.0-5.00) 01/28/24 04:48 Vancomycin Trough < 4.0 ug/mL (10-15) L 01/29/24 21:48 Vitals Last Vital Signs Temp 97.8 F 01/30/24 07:29 Pulse 81 01/30/24 07:29 Resp 16 01/30/24 07:29 BP 131/77 01/30/24 07:29 Pulse Ox 95 01/30/24 03:59 O2 Del Method Room Air 01/29/24 16:00 Discharge Plan Discharge Patient Disposition: Home Condition: Stable Prescriptions: New hydrocodone-acetaminophen 5-325 mg Tablet 1 tab PO Q12H PRN (Reason: Moderate To Severe Pain) Qty: 10 0RF pantoprazole 40 mg Tablet,Delayed Release (Dr/Ec) 40 mg PO DAILY Qty: 10 0RF insulin glargine [Lantus U-100 Insulin] 100 unit/mL Solution 35 unit SUBCUT BEDTIME Qty: 10 7RF Phospha 250 Neutral 250 mg Tablet 1 tab PO BID Qty: 6 0RF sennosides-docusate sodium [Stool Softener-Laxative] 8.6-50 mg Tablet 1 tab PO DAILY Qty: 10 0RF cefpodoxime 200 mg tablet 200 mg PO BID Qty: 28 0RF Rx Instructions: must administer with a meal/food doxycycline hyclate 100 mg tablet 100 mg PO BID 14 Days Qty: 28 0RF insulin lispro [Humalog KwikPen Insulin] 100 unit/mL insulin pen See Rx Instructions .ROUTE .COMPLEX Qty: 15 7RF Rx Instructions: Medium dose sliding scale Maximum in a day 12U lisinopril 10 mg tablet 10 mg PO DAILY Qty: 90 5RF magnesium oxide 400 mg (241.3 mg magnesium) Tablet 400 mg PO BID Qty: 6 0RF metformin 1,000 mg tablet 500 mg PO BID Qty: 60 5RF Discharge Orders: Discharge Order (Routine); Ordered 01/30/24 Ordered By: Aixa Beck Referrals: Neftali Schmitt DPM [Physician] - 1-3 days Patient Instructions: Opioid Safety Discharge Attestations Time Spent in Discharge Care*: greater than 30 min Quality Metrics Clinical Quality Measures [ No reported AMI, CVA or VTE this stay] Coding Level of Care Code Acute Code for Chg Fwd Diagnoses Uncontrolled type 2 diabetes mellitus with hyperglycemia E11.65 Glycemic state: with hyperglycemia Cellulitis of right foot L03.115 Diabetic wet gangrene of the foot E11.52 Necrosis of toe I96 Diabetic peripheral neuropathy associated with type 2 diabetes mellitus E11.42 Hyponatremia E87.1
[2024-01-30] MEDS: sodium chloride 0.9% 1,000 ML 30 ML IV (11:25)
--- NOTE | 2024-01-30 12:47 | P.ANESASSM_ITS ---
Pre-Anesthetic Assessment Height/Weight: Height 1.52 m Weight 63.049 kg Temp Pulse Resp BP Pulse Ox O2 Del Method 97.0 F L 89 16 116/78 94 Room Air 01/30/24 11:05 01/30/24 11:05 01/30/24 11:05 01/30/24 11:05 01/30/24 11:05 01/30/24 11:05 Preop Diagnosis: Gas gangrene right foot Operation Date: 01/27/24 16:20 Proposed Procedures p Ray Resection Partial Ray Resection right foot(Right) - Neftali Schmitt DPM Operation Date: 01/30/24 12:00 Proposed Procedures p Delayed Wound Closure(Right) - Neftali Schmitt DPM s Partial first metatarsectomy(Right) - Neftali Schmitt DPM Last intake: Intake Last Liquid Date 01/27/24 Last Liquid Time 07:30 Last Solid Date 01/27/24 Last Solid Time 07:30 Social No tobacco Exam alert, oriented x 3, clear to auscultation bilaterally and regular rate & rhythm Airway Submandibular: within normal limits Cervical ROM: within normal limits Mallampati: Class I Metabolic Diabetes Mellitus not taking meds Anesthetic Plan ASA status: 3 Anesthesia: General and MAC Other: Discussed the plan in Czech with the patient. He expressed understanding and all questions answered. Risk of > 500 ml blood loss (7ml/kg in children): No Medications/Allergies Home Medications Medication Instructions Recorded Confirmed Last Taken Type blood sugar diagnostic (Accu-Chek #100 ea 01/30/24 Unknown Rx Sugey Plus test strips) blood-glucose meter (Accu-Chek #1 ea 01/30/24 Unknown Rx Guide Glucose Meter) hydrocodone 5 mg-acetaminophen 325 1 tab PO Q12H PRN Moderate To 01/30/24 Unknown Rx mg tablet Severe Pain #10 tabs lancets (Accu-Chek Fastclix Lancet #200 ea 01/30/24 Unknown Rx Drum) Allergies Allergy/AdvReac Type Severity Reaction Status Date / Time No Known Allergies Allergy Verified 01/27/24 11:38 Current Medications Generic Name Dose Route Start Last Admin Trade Name Freq PRN Reason Stop Dose Admin Hydrocodone Bitart/Acetaminophen 1 tab 01/27/24 17:28 01/29/24 01:48 Hydrocodone-Acetaminophen 5-325 Mg Tablet PO 1 tab Q4H PRN Administration MODERATE TO SEVERE PAIN Enoxaparin Sodium 40 mg 01/28/24 18:00 01/28/24 17:01 Enoxaparin 40 Mg/0.4 Ml Syringe SUBCUT 40 mg Q24H TIMI Administration Piperacillin Sod/Tazobactam 50 mls @ 12.5 mls/hr 01/27/24 17:28 01/30/24 08:33 Sod 3.375 gm/ Sodium Chloride IV 12.5 mls/hr Q8H TIMI Administration Protocol Vancomycin HCl 1,000 mg/ 250 mls @ 250 mls/hr 01/29/24 23:00 01/30/24 07:35 Sodium Chloride IV Infused Q8H TIMI Infusion Sodium Chloride 1,000 mls @ 30 mls/hr 01/30/24 09:30 01/30/24 11:25 Sodium Chloride 0.9% IV 01/31/24 09:29 30 mls/hr .Q24H TIMI Administration Insulin Glargine 15 unit 01/28/24 21:00 01/29/24 20:56 Insulin Glargine 100 Units/1 Ml SUBCUT 15 unit BEDTIME TIMI Administration Insulin Human Lispro 0 unit 01/27/24 21:00 01/29/24 20:55 Insulin Lispro 100 Unit/1 Ml SUBCUT 3 unit BEDTIME [facility] Administration Protocol Insulin Human Lispro 0 unit 01/27/24 18:00 01/30/24 08:30 Insulin Lispro 100 Unit/1 Ml SUBCUT Not Given [facility] Protocol Insulin Human Lispro 3 unit 01/29/24 11:00 01/30/24 07:21 Insulin Lispro 100 Unit/1 Ml SUBCUT Not Given [facility] Magnesium Oxide 400 mg 01/28/24 18:00 01/30/24 08:32 Magnesium Oxide 400 Mg Tablet PO 400 mg BID TIMI Administration Oxycodone HCl 5 mg 01/28/24 09:49 01/28/24 17:01 Oxycodone 5 Mg Ir Tab/Cap PO 5 mg Q4H PRN Administration MODERATE PAIN Pantoprazole Sodium 40 mg 01/28/24 09:00 01/30/24 08:[address] 40 Mg Tablet PO 40 mg DAILY TIMI Administration Potassium Phosphate 250 mg 01/28/24 09:50 01/30/24 08:33 Phosphorus 250 Mg Tablet PO 250 mg BID TIMI Administration Senna/Docusate Sodium 1 tab 01/29/24 09:00 01/30/24 08:33 Sennosides-Docusate Tablet PO 1 tab DAILY TIMI Administration [facility] Anesthesia Medical History (Updated 01/28/24 @ 09:47 by Aixa Beck MD) Diabetes mellitus type II, uncontrolled Surgical History (Updated 01/27/24 @ 19:31 by Gay Perea MD) Status post amputation of toe of right foot 2021 2nd digit right foot Family History (Updated 01/27/24 @ 15:49 by Gay Perea MD) Other Cancer Social History (Updated 01/27/24 @ 15:48 by Gay Perea MD) Smoking and tobacco/nicotine status: never used tobacco/nicotine Alcohol intake: former Former alcohol use details: quit drinking heavily in Nov 2023 Substance/Drug Use: never Additional social history: Does not speak Maori Data Anesthesia 01/30/24 05:27 01/30/24 05:27 Short CBC 01/29/24 01/30/24 Range/Units 05:16 05:27 WBC 6.93 5.47 (3.29-11.43) 10^3/uL Hgb 11.10 L 11.60 (11.27-16.99) g/dL Hct 32.7 L 34.4 L (37-53) % MCV 88.6 90.1 (82-101) fl Plt Count 211 215 (157-399) 10^3/cmm Neut % (Auto) 69.4 61.8 % Neut # (Auto) 4.81 3.38 (1.8-7.7) 10^3/uL BMP 01/29/24 01/30/24 05:16 05:27 Sodium 129 L 133 L Potassium 3.2 L 3.6 Chloride 92 L 95 L Carbon Dioxide 26 28 BUN 5 L 2 L Creatinine 0.4 L 0.4 L Glucose 235 H 218 H Calcium 7.6 L 8.4 L Microbiology 01/27/24 13:36 Gram Stain - Final Toe - #1 Wound Culture - Preliminary 01/27/24 16:50 Gram Stain - Final Foot - #1 Tissue Culture - Final Enterobacter cloacae Cardiac Studies: 2 No Data to Display
--- NOTE | 2024-01-30 12:48 | W.PM.OPSUD ---
Surgery/Procedure H&P Update DATE OF PROCEDURE: January 30, 2024 DATE H&P PERFORMED: 01/27/24 H&P UPDATE INFORMATION: I have reviewed H&P completed within last 30 days, I have examined patient prior to procedure, No changes to prior documentation and H&P is in [facility] EMR on date indicated PREOP DIAGNOSIS: Gas gangrene right foot PLANNED PROCEDURE: Operation Date: 01/27/24 16:20 Proposed Procedures p Ray Resection Partial Ray Resection right foot(Right) - Neftali Schmitt DPM Operation Date: 01/30/24 12:00 Proposed Procedures p Delayed Wound Closure(Right) - Neftali Schmitt DPM s Partial first metatarsectomy(Right) - Neftali Schmitt DPM
--- NOTE | 2024-01-30 13:10 | W.PM.BPON ---
Date of Procedure: 01/30/24 Surgeon: Neftali Schmitt DPM Employee Welfare Manager(s): THANIA Procedure(s) performed: Primary delayed closure right foot. Findings of the procedure(s): Devitalized soft tissue and bone which was resected and debrided Estimated blood loss: 5 mL Specimen(s) removed: None Post-operative diagnosis: Osteomyelitis and gangrene right foot No complications with anesthesia or surgery. Okay for discharge from podiatry standpoint. Will need 2 weeks of oral antibiotics on discharge.
[2024-01-30] MEDS: lidocaine 2% INJ 20 mL INJECTION (13:29)
[2024-01-30] MEDS: BUPivacaine 0.5% INJ 30 mL INJECTION (13:29)
--- NOTE | 2024-01-30 14:26 | ANE.PACU2 ---
Inpatient post-anesthesia follow up: Airway intact: Yes Vital signs: Temperature 97.1 F Pulse Rate 80 Respiratory Rate 16 Blood Pressure 120/92 Pulse Oximetry 97 Oxygen Delivery Me thod Room Air Oxygen Flow Rate Fraction of Inspir ed Oxygen Hydration adequate: Yes Nausea and vomiting: No Pain level: 2 Mental status: Baseline
--- NOTE | 2024-01-30 15:16 | PM.OP ---
Operative Report Date of procedure: January 30, 2024 Pre-op diagnosis: Gas gangrene right great toe Status post right great toe amputation Post-op diagnosis: Status post right great toe amputation secondary to gas gangrene right great toe Post-op findings: Clean margins postoperatively Procedure done: Primary delayed closure right foot. CPT code 95280 Implants: 3-0 Vicryl, 4-0 Vicryl, 4-0 nylon Specimens removed/disposition: None Pathology: none Surgeon: Neftali Schmitt DPM Locker Room Clerk: THANIA Estimated blood loss: Less than 5 See intraoperative documentation IV fluids: 0 Urine output: 0 Complications: None Brief History: Patient is status post right great toe amputation secondary to gas gangrene will require further surgical debridement of devitalized tissue and potentially bone and attempted primary delayed closure to advance healing should clean margins be obtained. I reviewed at length with the patient, the risks, potential complications, benefits, alternatives, expectations, and typical outcomes associated with the surgery. The risks and potential complications were explained in detail, including but not limited to infection, wound dehiscence or soft tissue complications, bleeding and hematoma, chronic edema, neuritis or nerve damage producing numbness or chronic pain, CRPS, failure to relieve pain or worsening pain, thick / painful / unsightly scar, limited motion / stiffness, malposition, delayed union, malunion, or nonunion, fracture, reaction to implants, anesthetic complications, venous thromboembolism, and deformity recurrence. I discussed the notion of no regrets with the patient as it pertains to complications and outcomes. The patient seemed to understand the nature of the proposed care and required convalescence. They asked appropriate questions, answered to their satisfaction. They are aware no guarantees can be made as to a satisfactory outcome and they understand there may be other possible unforeseen complications or outcomes not listed here that will be treated accordingly if they arise. There were no written or implied guarantees given to the patient. They gave informed consent to proceed. Procedure: Under mild sedation the patient was brought to the operating room and remained on the gurney in supine position. A timeout was performed. Anesthesia was then administered by the anesthesia service. Local anesthesia was injected by myself consisting of 30 cc of one-to-one mixture 1% lidocaine and 0.5 to Marcaine plain and a right Chauhan block fashion. Well-padded pneumatic tourniquet was applied to the right ankle. The right lower extremity was scrubbed, prepped and draped utilizing normal aseptic technique. Right foot was elevated and tourniquet inflated to 250 mmHg. Attention was directed to the medial column of the right foot where amputation site had necrosis distally at the margin of the incision, soft tissue was sharply incised and debrided of all devitalized tissue down to and including myofascial layer both extensor and flexor tendons retracted under tension and cut at the most proximal margin. Incision was irrigated with copious amounts of sterile skin solution. First metatarsal head was visualized and noted to be dusky hickey on articular surface necessitating debridement of bone, distal aspect of the first metatarsal was debrided down to healthy margin followed by further sterile saline solution flush. Clean margins appreciated intraoperatively at this point and closure was performed in a layered fashion. Myofascial layer reapproximated with 3-0 Vicryl, subcutaneous tissue reapproximated with 4-0 Vicryl and skin with 4-0 nylon. The incision was then dressed with Adaptic, sterile 4 x 4's, Kerlix and Checo wrap. Postop shoe was applied. Tourniquet was deflated and a prompt hyperemic response was noted to the remaining digits of the right foot. Patient tolerated the procedure and anesthesia well and was transferred to the PACU with vital signs stable and vascular status intact. Following a period of postoperative monitoring he will be transferred back to the floor to continue antibiotics. Cultures are finalizing, planning on 2 weeks of oral antibiotics on discharge due to clean margins being obtained intraoperatively. Patient advised to remain strict nonweightbearing to avoid further complication, dehiscence and wound formation as well as further infection.
== END 2024-01-30 18:01 | disposition home or self-care (01) | DRG 255 ==
LOC: ER 13:49 → MEDSURG 14:32
PROVIDERS: Podiatrist Foot & Ankle Surgery; Admitting Provider Hospitalist; Emergency Provider Emergency Medicine; Visit Provider Internal Medicine
PROC: 0Y6P0Z0 Detachment at Right 1st Toe, Complete, Open Approach (ICD-10-PCS; CPT 28810; principal; 2024-01-27 16:00)
PROC: 0JQQ0ZZ Repair Right Foot Subcutaneous Tissue and Fascia, Open Approach (ICD-10-PCS; CPT 13160; principal; 2024-01-30 12:00)
PROC: 0JQQ0ZZ Repair Right Foot Subcutaneous Tissue and Fascia, Open Approach (ICD-10-PCS; 2024-01-30 12:00)
DX: E11.52 Type 2 diabetes mellitus with diabetic peripheral angiopathy with gangrene (principal); A48.0 Gas gangrene; M86.171 Other acute osteomyelitis, right ankle and foot; E87.1 Hypo-osmolality and hyponatremia; E11.69 Type 2 diabetes mellitus with other specified complication; E11.42 Type 2 diabetes mellitus with diabetic polyneuropathy; F10.10 Alcohol abuse, uncomplicated; K02.9 Dental caries, unspecified; E83.42 Hypomagnesemia; E83.39 Other disorders of phosphorus metabolism; B96.89 Other specified bacterial agents as the cause of diseases classified elsewhere; Z89.421 Acquired absence of other right toe(s)
CPT/HCPCS: 36415; 36416; 73630; 80048; 80053; 80061; 80202; 82962; 83036; 83735; 84100; 85025; 85651; 86140; 87040; 87070; 87075; 87077; 87176; 87186; 87205; 88305; 88311; 93926; 96365; 96372; 97161; 97760; 99285; J1650; J1815; J1885; J2371; J2543; J2704; J3010; J3370; J3480; J3490; J7030; J7050; L3260

== ENCOUNTER → 2024-02-19 08:38 | Outpatient (BNVA) | payer SELFPAY | PROVIDERS: Visit Provider Podiatrist Foot & Ankle Surgery | DX: T81.30XA Disruption of wound, unspecified, initial encounter (principal); Z98.890 Other specified postprocedural states; E11.65 Type 2 diabetes mellitus with hyperglycemia; Y83.8 Other surgical procedures as the cause of abnormal reaction of the patient, or of later complication, without mention of misadventure at the time of the procedure; Z91.199 Patient's noncompliance with other medical treatment and regimen due to unspecified reason; Z79.84 Long term (current) use of oral hypoglycemic drugs; Z79.4 Long term (current) use of insulin | CPT/HCPCS: 36415; 73630; 80053; 85025; 85651; 86140 ==

== ENCOUNTER 2024-11-23 16:57 | Observation (INO) | payer SELFPAY ==
[2024-11-23] VITALS (7 sets, daily range): BP systolic 124–164; BP diastolic 83–114; PULSE 112–125; TEMP 36.7; O2SAT 93–97
[2024-11-23 17:25] LABS: Glucose Point of Care 203 mg/dL (70-110)
[2024-11-23 19:23] LABS: Basophils % 0.2 %; Hematocrit 42.4 % (37-53); Lymphocytes # 0.6 10^3/uL (0.8-4.8); Lymphocytes % 6.2 %; Mean Corpuscular HGB Conc 32.8 g/dL (30-55); Mean Corpuscular Hemoglobin 28.5 pg (27-33); Mean Corpuscular Volume 86.9 fl (82-101); Mean Platelet Volume 10.1 fL (7.4-10.4); Monocytes # 0.9 10^3/uL (0.2-0.9); Monocytes % 9.3 %; Neutrophils # 8.14 10^3/uL (1.8-7.7); Neutrophils % 83.8 %; Nucleated Red Blood Cells % 0 %; Platelet Count 82 10^3/cmm (157-399); Red Blood Count 4.88 10^6/uL (3.85-5.65); Red Cell Distribution Width 13.1 % (12.1-15.1); White Blood Count 9.71 10^3/uL (3.29-11.43)
--- NOTE | 2024-11-23 19:39 | CTR_ITS ---
PROCEDURE INFORMATION: Exam: CT Abdomen And Pelvis With Contrast Exam date and time: 11/23/2024 8:10 PM Age: 54 years old Clinical indication: Abdominal pain; Additional info: N/v/ abdominal pain TECHNIQUE: Imaging protocol: Computed tomography of the abdomen and pelvis with contrast. Radiation optimization: All CT scans at this facility use at least one of these dose optimization techniques: automated exposure control; mA and/or kV adjustment per patient size (includes targeted exams where dose is matched to clinical indication); or iterative reconstruction. Contrast material: OMNI 350; Contrast volume: 100 ml; Contrast route: INTRAVENOUS (IV); COMPARISON: CT abdomen pelvis w con* [id number] 08/26/2024 11:58 PM RADIATION DOSE METRICS: Total DLP (mGy-cm): 386.41 FINDINGS: Lungs: Lung bases are clear. No pleural effusion. Diaphragm: There is chronic elevation of the left hemidiaphragm. Liver: Normal. No mass. Gallbladder and biliary ducts: A small gallstone is noted in the gallbladder but the gallbladder does not appear inflamed. Pancreas: Normal. No ductal dilation. Spleen: Normal. No splenomegaly. Adrenal glands: Normal. No mass. Kidneys and ureters: Normal. No hydronephrosis. Stomach and bowel: Unremarkable. No obstruction. No mucosal thickening. Appendix: The appendix is clearly identified and is unremarkable. Intraperitoneal space: Unremarkable. No free air. No significant fluid collection. Vasculature: Unremarkable. No abdominal aortic aneurysm. Lymph nodes: Unremarkable. No enlarged lymph nodes. Urinary bladder: Diffuse chronic bladder wall thickening is noted. Reproductive: The prostate gland is abnormally enlarged. Bones/joints: Unremarkable. No acute fracture. Soft tissues: Unremarkable. CT/CT abdomen pelvis w con* [id number] IMPRESSION: 1. No acute findings. 2. Cholelithiasis 3. Prostate enlargement with chronic bladder wall thickening
[2024-11-23 19:40] LABS: Alanine Aminotransferase 45 U/L (0-41); Albumin Level 4.7 g/dL (3.5-5.2); Alkaline Phosphatase 154 U/L (40-130); Anion Gap 21.5 (5-19); Aspartate Amino Transferase 131 U/L (0-40); Blood Urea Nitrogen 31 mg/dL (6-20); Calcium 10.1 mg/dL (8.5-10.5); Carbon Dioxide 30 mmol/L (22-29); Chloride 94 mmol/L (98-107); Creatinine Clr Calc Pharmacy 38.6495; Globulin 4.5 g/dL (1.3-4.6); Glomerular Filtration Rate 45.3 mL/min (90-130); Glucose 197 mg/dL (65-115); Osmolality Calculated 306 mOsm/kg (285-295); Potassium 3.5 mmol/L (3.5-5.1); Sodium 142 mmol/L (136-145); Total Bilirubin 2.1 mg/dL (0.15-1.2); Total Protein 9.2 g/dL (6.6-8.7)
[2024-11-23] MEDS: ondansetron 2 mg/ML SDV 2 mL 4 MG IVP (19:50)
[2024-11-23] MEDS: sodium chloride 0.9% 1,000 ML 999 ML IV ×2 (19:52→21:42)
[2024-11-23 19:58] LABS: Lipase 57 U/L (13-60)
[2024-11-23 20:07] LABS: Covid PCR NEGATIVE (Negative); Influenza A NEGATIVE (Negative); Influenza B NEGATIVE (Negative); Respiratory Syncytial Virus Ce NEGATIVE (Negative)
[2024-11-23 20:10] LABS: Lactic Sepsis W/Reflex 2.8 mmol/L (0.5-2.2)
[2024-11-23] MEDS: iohexol 350 mg/mL 500 mL Btl (per mL) IV (20:12)
--- NOTE | 2024-11-23 20:17 | ED_ITS ---
Documented by User: Dusty Coronel 11/23/24 23:18 HPI - Nausea/Vomiting/Diarrhea 2 General: Chief complaint: Nausea/Vomiting/Diarrhea Stated complaint: high sugar Time Seen by Provider: 11/23/24 18:40 History of Present Illness: 54-year-old speaking male winston nts to the ER chief complaint of persistent abdominal pain with nausea and vomiting but no diarrhea patient appears to be a very poor historian with limited speaking capabilities patient per his records is a type II diabetic he is on metformin as well as a Humalog pen patient has reported that his blood sugars have been somewhat elevated today in the 200 mg/dL range patient reports having a fever at home reporting being having people around him being sick and ill patient reports generalized abdominal discomfort nonspecific reporting no other associated symptoms. Associated nausea: Yes Associated symtoms: Reports nausea; Denies anxiety, change in vision, chest pain, fatigue, headache(s), malaise or palpitations Related Data Previous Rx's Medication Instructions Recorded blood sugar diagnostic (Accu-Chek #100 ea 01/30/24 Sugey Plus test strips) blood-glucose meter (Accu-Chek #1 ea 01/30/24 Guide Glucose Meter) cefpodoxime 200 mg tablet 200 mg PO BID #28 tabs 01/30/24 hydrocodone 5 mg-acetaminophen 325 1 tab PO Q12H PRN Moderate To 01/30/24 mg tablet Severe Pain #10 tabs insulin glargine 100 unit/mL 35 unit (0.35 mL) SUBCUT BEDTIME 01/30/24 subcutaneous solution (Lantus #10 mL U-100 Insulin) insulin lispro 100 unit/mL See Rx Instructions .Route 01/30/24 subcutaneous pen (Humalog KwikPen .COMPLEX #15 mL (U-100) Insulin) lancets (Accu-Chek Fastclix Lancet #200 ea 01/30/24 Drum) lisinopril 10 mg tablet 10 mg PO DAILY #90 tabs 01/30/24 magnesium oxide 400 mg (241.3 mg 400 mg PO BID #6 tabs 01/30/24 magnesium) tablet metformin 1,000 mg tablet 500 mg (1/2 x 1,000 mg) PO BID #60 01/30/24 tabs pantoprazole 40 mg tablet,delayed 40 mg PO DAILY #10 tabs 01/30/24 release sennosides 8.6 mg-docusate sodium 1 tab PO DAILY #10 tabs 01/30/24 50 mg tablet (Stool Softener-Laxative) sodium di- and 1 tab PO BID #6 tabs 01/30/24 monophosphate-potassium phos monobasic 250 mg tablet (Phospha Neutral) Crutches #1 ea 02/05/24 ondansetron HCl 4 mg tablet 4 mg PO Q8H PRN nausea and 08/27/24 vomiting #14 tabs potassium chloride 20 mEq 20 meq PO BID #14 tabs 08/27/24 tablet,extended release Allergies Allergy/AdvReac Type Severity Reaction Status Date / Time No Known Allergies Allergy Verified 11/23/24 17:21 Review of Systems 2 General: Reports: 10 or more systems reviewed and unremarkable except in HPI and below Const: Denies: fever(s), chills, fatigue or malaise Eyes: Denies: change in vision or blurry vision Card: Denies: chest pain or palpitations Resp: Denies: dyspnea or productive cough GI: Reports: abdominal pain, nausea and vomiting : Denies: flank pain Musc: Denies: extremity pain or extremity swelling Skin/Breast: Denies: rash or pruritus Neuro: Denies: headache(s) Psych: Denies: anxiety or depression Bernardo/Lymph: Denies: easy bleeding All/Imm: Denies: urticaria, throat swelling or facial swelling PFSH ED 2 PFSH: Medical History Diabetic peripheral neuropathy associated with type 2 diabetes mellitus Diabetes mellitus type II, uncontrolled Pakistani speaking patient Dental caries Peripheral vascular disease due to secondary diabetes Cellulitis of right foot Diabetic wet gangrene of the foot Surgical History Status post amputation of toe of right foot 2021 2nd digit right foot Family History Other Cancer Social History Smoking and tobacco/nicotine status: never used tobacco/nicotine Alcohol intake: former Former alcohol use details: quit drinking heavily in Nov 2023 Substance/Drug Use: never Additional social history: Does not speak Kuwaiti Physical Exam 2 Const: COMMON NORMALS: no acute distress, patient oriented x3 and healthy appearing HENMT: COMMON NORMALS: normocephalic and atraumatic HEAD & SCALP: n ormocephalic and atraumatic Eye: COMMON NORMALS: Equal, round and reactive pupils present and EOMs intact bilaterally PUPIL: Yes Equal, round and reactive pupils present Neck/C-Spine: COMMON NORMALS: full ROM, supple and no JVD Lymph: LYMPHATIC: no lymphadenopathy noted Chest: COMMONS NORMALS: normal inspection of the chest and normal palpation of entire chest wall Resp: COMMON NORMALS: normal respiratory effort, No retractions and clear to auscultation bilaterally EFFORT & INSPECTION: Yes able to speak in complete sentences and Yes symmetric chest movement AUSCULTATION: clear to auscultation bilaterally Cardio: COMMON NORMALS: no JVD, regular rate and regular rhythm RATE: r egular rate RHYTHM: regular rhythm GI: COMMON NORMALS: Normal to inspection, nondistended, normoactive bowel sounds present, Soft to palpation and non-tender INSPECTION: Yes normal to inspection PALPATION: Yes Soft to palpation OTHER: Mild pain to palpation diffusely nonspecific no guarding or rebound noted. : COMMON NORMALS: Yes no CVA tenderness BLADDER/KIDNEY EXAM: Yes no CVA tenderness Back/Pelvis: COMMON NORMALS: no CVA tenderness Extremity: COMMON NORMALS: normal to inspection and full ROM Neuro: COMMON NORMALS: patient oriented x3, CN's II-XII intact bilaterally, moves all extremities and no focal motor deficits Psych: COMMON NORMALS: mental status grossly normal, Normal thought process present, cooperative and normal affect THOUGHT PROCESS: Normal thought process present Skin: COMMON NORMALS: no rashes or lesions noted GENERAL SKIN EXAM: no rashes or lesions noted Course 2 Vital Signs: Vital signs: Vital Signs Temperature 98.1 F 11/23/24 17:10 Pulse Rate 112 H 11/23/24 23:54 Blood Pressure 154/98 11/23/24 23:54 Pulse Oximetry 94 11/23/24 23:54 Oxygen Delivery Me thod Room Air 11/23/24 22:11 MDM - Nausea/Vomiting/Diarrhea Medical Decision Making Due to patient's symptoms and condition lab and imaging was obtained underlying concerns of obstructive type picture were noted on his CT gallbladder is disease due to swelling we will be taking an ultrasound of the abdomen gallbladder for further rule out patient has been persistently tachycardic throughout her stay in the emergency department will be backtracking and getting a basic cardiac workup as well as EKG with heart enzymes and a chest x-ray. This patient was signed out to my colleague Dr. Booth at [id number] Lab Data 11/23/24 18:47 11/23/24 18:47 Radiology Impressions Abdomen/Pelvis CT 11/23/24 19:39 IMPRESSION: 1. No acute findings. 2. Cholelithiasis 3. Prostate enlargement with chronic bladder wall thickening Laboratory Results WBC 9.71 10^3/uL (3.29-11.43) 11/23/24 18:47 RBC 4.88 10^6/uL (3.85-5.65) 11/23/24 18:47 Hgb 13.90 g/dL (11.27-16.99) 11/23/24 18:47 Hct 42.4 % (37-53) 11/23/24 18:47 MCV 86.9 fl (82-101) 11/23/24 18:47 MCH 28.5 pg (27-33) 11/23/24 18:47 MCHC 32.8 g/dL (30-55) 11/23/24 18:47 RDW 13.1 % (12.1-15.1) 11/23/24 18:47 Plt Count 82 10^3/cmm (157-399) L 11/23/24 18:47 MPV 10.1 fL (7.4-10.4) 11/23/24 18:47 Neut % (Auto) 83.8 % 11/23/24 18:47 Lymph % (Auto) 6.2 % 11/23/24 18:47 Pecos % (Auto) 9.3 % 11/23/24 18:47 Eos % (Auto) 0.0 % 11/23/24 18:47 Baso % (Auto) 0.2 % 11/23/24 18:47 Neut # (Auto) 8.14 10^3/uL (1.8-7.7) H 11/23/24 18:47 Lymph # (Auto) 0.6 10^3/uL (0.8-4.8) L 11/23/24 18:47 [place] # (Auto) 0.9 10^3/uL (0.2-0.9) 11/23/24 18:47 Eos # (Auto) 0.0 10^3/uL (0.0-0.8) 11/23/24 18:47 Baso # (Auto) 0.0 10^3/uL (0.0-0.1) 11/23/24 18:47 Nucleated RBC % (auto) 0 % 11/23/24 18:47 Nucleated RBCs # 0.0 /100WBC 11/23/24 18:47 Sodium 142 mmol/L (136-145) 11/23/24 18:47 Potassium 3.5 mmol/L (3.5-5.1) 11/23/24 18:47 Chloride 94 mmol/L (98-107) L 11/23/24 18:47 Carbon Dioxide 30 mmol/L (22-29) H 11/23/24 18:47 Anion Gap 21.5 (5-19) H 11/23/24 18:47 BUN 31 mg/dL (6-20) H 11/23/24 18:47 Creatinine 1.6 mg/dL (0.7-1.2) H 11/23/24 18:47 GFR Calculation 45.3 mL/min (90-130) L 11/23/24 18:47 Glucose 197 mg/dL (65-115) H 11/23/24 18:47 POC Glucose 203 mg/dL (70-110) H 11/23/24 17:18 Calculated Osmolality 306 mOsm/kg (285-295) H 11/23/24 18:47 Lactic Acid 2.8 mmol/L (0.5-2.2) H 11/23/24 18:47 Lactic Acid (Sepsis) 3.5 mmol/L (0.5-2.2) H 11/23/24 19:54 Calcium 10.1 mg/dL (8.5-10.5) 11/23/24 18:47 Total Bilirubin 2.1 mg/dL (0.15-1.2) H 11/23/24 18:47 AST 131 U/L (0-40) H 11/23/24 18:47 ALT 45 U/L (0-41) H 11/23/24 18:47 Alkaline Phosphatase 154 U/L (40-130) H 11/23/24 18:47 Troponin T Baseline 25 ng/L (0-15) H 11/23/24 19:54 Troponin T 120 Minute 22.03 ng/L (0-15) H 11/23/24 22:45 Delta Troponin T -2.97 ABS# (0-10) L 11/23/24 22:45 C-Reactive Protein 3.0 mg/L (0.0-4.9) 11/23/24 18:47 Total Protein 9.2 g/dL (6.6-8.7) H 11/23/24 18:47 Albumin 4.7 g/dL (3.5-5.2) 11/23/24 18:47 Globulin 4.5 g/dL (1.3-4.6) 11/23/24 18:47 Lipase 57 U/L (13-60) 11/23/24 18:47 Urine Color Dark yellow (Yellow) A 11/23/24 21: Urine Appearance Clear (CLEAR) 11/23/24 21:02 Urine pH 6.0 (5-7) 11/23/24 21:02 Ur Specific [place] 1.050 (1.005-1.030) H 11/23/24 21:02 Urine Protein 1+ (Negative) A 11/23/24 21: Urine Glucose (UA) Negative (Normal) 11/23/24 21: Urine Ketones 1+ (Negative) H 11/23/24 21: Urine Blood 1+ (Negative) A 11/23/24 21: Urine Nitrate Negative (Negative) 11/23/24 21: Urine Bilirubin Negative (Negative) 11/23/24 21: Urine Urobilinogen 1.0 mg/dL (Negative) 11/23/24 21:02 Ur Leukocyte Esterase Negative (Negative) 11/23/24 21: Urine RBC 3-5 /hpf (0-2) 11/23/24 21:02 Urine WBC 0-5 /hpf (0-5) 11/23/24 21:02 Ur Squamous Epith Cells 0-5 /hpf (0-5) 11/23/24 21:02 Amorphous Sediment Not Reportable 11/23/24 21:02 Urine Bacteria None seen /hpf (NONE) 11/23/24 21:02 Hyaline Casts 41.35 /lpf 11/23/24 21:02 Urine Opiates Screen Negative ng/mL (Negative) 11/23/24 21:02 Ur Barbiturates Screen Negative ng/mL (Negative) 11/23/24 21:02 Ur Phencyclidine Scrn Negative ng/mL (Negative) 11/23/24 21:02 Ur Amphetamines Screen Negative ng/mL (Negative) 11/23/24 21:02 U Benzodiazepines Scrn Negative ng/mL (Negative) 11/23/24 21:02 Urine Cocaine Screen Negative ng/mL (Negative) 11/23/24 21:02 U Marijuana (THC) Screen Negative ng/mL (Negative) 11/23/24 21:02 Ethyl Alcohol < 10 mg/dL (0-10) 11/23/24 19:54 Coronavirus (PCR) Negative (Negative) 11/23/24 19:24 Influenza A (PCR) Negative (Negative) 11/23/24 19:24 Influenza Type B (PCR) Negative (Negative) 11/23/24 19:24 RSV (PCR) Negative (Negative) 11/23/24 19:24 All radiology interpretation(s) finalized by discharge Discharge Plan Discharge Patient Disposition: Admitted As Inpatient Admit Provider: iAxa Beck Clinical Impression: Pakistani speaking patient, Noncompliance, Alcohol abuse, Gastroenteritis, Diabetic peripheral neuropathy associated with type 2 diabetes mellitus Condition: Stable Coding Level of Care Code ED [employer] Coordinator for Chg Fwd Documented by User: Yusuf Booth DO 11/24/24 00:38 HPI - Nausea/Vomiting/Diarrhea 2 General: Chief complaint: Nausea/Vomiting/Diarrhea Stated complaint: high sugar Time Seen by Provider: 11/23/24 18:40 Related Data Previous Rx's Medication Instructions Recorded blood sugar diagnostic (Accu-Chek #100 ea 01/30/24 Sugey Plus test strips) blood-glucose meter (Accu-Chek #1 ea 01/30/24 Guide Glucose Meter) cefpodoxime 200 mg tablet 200 mg PO BID #28 tabs 01/30/24 hydrocodone 5 mg-acetaminophen 325 1 tab PO Q12H PRN Moderate To 01/30/24 mg tablet Severe Pain #10 tabs insulin glargine 100 unit/mL 35 unit (0.35 mL) SUBCUT BEDTIME 01/30/24 subcutaneous solution (Lantus #10 mL U-100 Insulin) insulin lispro 100 unit/mL See Rx Instructions .Route 01/30/24 subcutaneous pen (Humalog KwikPen .COMPLEX #15 mL (U-100) Insulin) lancets (Accu-Chek Fastclix Lancet #200 ea 01/30/24 Drum) lisinopril 10 mg tablet 10 mg PO DAILY #90 tabs 01/30/24 magnesium oxide 400 mg (241.3 mg 400 mg PO BID #6 tabs 01/30/24 magnesium) tablet metformin 1,000 mg tablet 500 mg (1/2 x 1,000 mg) PO BID #60 01/30/24 tabs pantoprazole 40 mg tablet,delayed 40 mg PO DAILY #10 tabs 01/30/24 release sennosides 8.6 mg-docusate sodium 1 tab PO DAILY #10 tabs 01/30/24 50 mg tablet (Stool Softener-Laxative) sodium di- and 1 tab PO BID #6 tabs 01/30/24 monophosphate-potassium phos monobasic 250 mg tablet (Phospha Neutral) Crutches #1 ea 02/05/24 ondansetron HCl 4 mg tablet 4 mg PO Q8H PRN nausea and 08/27/24 vomiting #14 tabs potassium chloride 20 mEq 20 meq PO BID #14 tabs 08/27/24 tablet,extended release Allergies Allergy/AdvReac Type Severity Reaction Status Date / Time No Known Allergies Allergy Verified 11/23/24 17:21 PFSH ED 2 PFSH: Medical History Diabetic peripheral neuropathy associated with type 2 diabetes mellitus Diabetes mellitus type II, uncontrolled Pakistani speaking patient Dental caries Peripheral vascular disease due to secondary diabetes Cellulitis of right foot Diabetic wet gangrene of the foot Surgical History Status post amputation of toe of right foot 2021 2nd digit right foot Family History Other Cancer Social History Smoking and tobacco/nicotine status: never used tobacco/nicotine Alcohol intake: former Former alcohol use details: quit drinking heavily in Nov 2023 Substance/Drug Use: never Additional social history: Does not speak Kuwaiti Course 2 Vital Signs: Vital signs: Vital Signs Temperature 98.1 F 11/23/24 17:10 Pulse Rate 112 H 11/23/24 23:54 Blood Pressure 154/98 11/23/24 23:54 Pulse Oximetry 94 11/23/24 23:54 Oxygen Delivery Me thod Room Air 11/23/24 22:11 MDM - Nausea/Vomiting/Diarrhea Medical Decision Making Due to patient's symptoms and condition lab and imaging was obtained underlying concerns of obstructive type picture were noted on his CT gallbladder is disease due to swelling we will be taking an ultrasound of the abdomen gallbladder for further rule out patient has been persistently tachycardic throughout her stay in the emergency department will be backtracking and getting a basic cardiac workup as well as EKG with heart enzymes and a chest x-ray. This patient was signed out to my colleague Dr. Booth at [phone] Care transferred over to myself at shift change, Dr. Beck came to evaluate the patient said he will admit the patient to [facility] Lab Data 11/23/24 18:47 11/23/24 18:47 Radiology Impressions Abdomen/Pelvis CT 11/23/24 19:39 IMPRESSION: 1. No acute findings. 2. Cholelithiasis 3. Prostate enlargement with chronic bladder wall thickening Laboratory Results WBC 9.71 10^3/uL (3.29-11.43) 11/23/24 18:47 RBC 4.88 10^6/uL (3.85-5.65) 11/23/24 18:47 Hgb 13.90 g/dL (11.27-16.99) 11/23/24 18:47 Hct 42.4 % (37-53) 11/23/24 18:47 MCV 86.9 fl (82-101) 11/23/24 18:47 MCH 28.5 pg (27-33) 11/23/24 18:47 MCHC 32.8 g/dL (30-55) 11/23/24 18:47 RDW 13.1 % (12.1-15.1) 11/23/24 18:47 Plt Count 82 10^3/cmm (157-399) L 11/23/24 18:47 MPV 10.1 fL (7.4-10.4) 11/23/24 18:47 Neut % (Auto) 83.8 % 11/23/24 18:47 Lymph % (Auto) 6.2 % 11/23/24 18:47 Pecos % (Auto) 9.3 % 11/23/24 18:47 Eos % (Auto) 0.0 % 11/23/24 18:47 Baso % (Auto) 0.2 % 11/23/24 18:47 Neut # (Auto) 8.14 10^3/uL (1.8-7.7) H 11/23/24 18:47 Lymph # (Auto) 0.6 10^3/uL (0.8-4.8) L 11/23/24 18:47 [place] # (Auto) 0.9 10^3/uL (0.2-0.9) 11/23/24 18:47 Eos # (Auto) 0.0 10^3/uL (0.0-0.8) 11/23/24 18:47 Baso # (Auto) 0.0 10^3/uL (0.0-0.1) 11/23/24 18:47 Nucleated RBC % (auto) 0 % 11/23/24 18:47 Nucleated RBCs # 0.0 /100WBC 11/23/24 18:47 Sodium 142 mmol/L (136-145) 11/23/24 18:47 Potassium 3.5 mmol/L (3.5-5.1) 11/23/24 18:47 Chloride 94 mmol/L (98-107) L 11/23/24 18:47 Carbon Dioxide 30 mmol/L (22-29) H 11/23/24 18:47 Anion Gap 21.5 (5-19) H 11/23/24 18:47 BUN 31 mg/dL (6-20) H 11/23/24 18:47 Creatinine 1.6 mg/dL (0.7-1.2) H 11/23/24 18:47 GFR Calculation 45.3 mL/min (90-130) L 11/23/24 18:47 Glucose 197 mg/dL (65-115) H 11/23/24 18:47 POC Glucose 203 mg/dL (70-110) H 11/23/24 17:18 Calculated Osmolality 306 mOsm/kg (285-295) H 11/23/24 18:47 Lactic Acid 2.8 mmol/L (0.5-2.2) H 11/23/24 18:47 Lactic Acid (Sepsis) 3.5 mmol/L (0.5-2.2) H 11/23/24 19:54 Calcium 10.1 mg/dL (8.5-10.5) 11/23/24 18:47 Total Bilirubin 2.1 mg/dL (0.15-1.2) H 11/23/24 18:47 AST 131 U/L (0-40) H 11/23/24 18:47 ALT 45 U/L (0-41) H 11/23/24 18:47 Alkaline Phosphatase 154 U/L (40-130) H 11/23/24 18:47 Troponin T Baseline 25 ng/L (0-15) H 11/23/24 19:54 Troponin T 120 Minute 22.03 ng/L (0-15) H 11/23/24 22:45 Delta Troponin T -2.97 ABS# (0-10) L 11/23/24 22:45 C-Reactive Protein 3.0 mg/L (0.0-4.9) 11/23/24 18:47 Total Protein 9.2 g/dL (6.6-8.7) H 11/23/24 18:47 Albumin 4.7 g/dL (3.5-5.2) 11/23/24 18:47 Globulin 4.5 g/dL (1.3-4.6) 11/23/24 18:47 Lipase 57 U/L (13-60) 11/23/24 18:47 Urine Color Dark yellow (Yellow) A 11/23/24 21:02 Urine Appearance Clear (CLEAR) 11/23/24 21:02 Urine pH 6.0 (5-7) 11/23/24 21:02 Ur Specific [place] 1.050 (1.005-1.030) H 11/23/24 21:02 Urine Protein 1+ (Negative) A 11/23/24 21:02 Urine Glucose (UA) Negative (Normal) 11/23/24 21:02 Urine Ketones 1+ (Negative) H 11/23/24 21:02 Urine Blood 1+ (Negative) A 11/23/24 21:02 Urine Nitrate Negative (Negative) 11/23/24 21:02 Urine Bilirubin Negative (Negative) 11/23/24 21:02 Urine Urobilinogen 1.0 mg/dL (Negative) 11/23/24 21:02 Ur Leukocyte Esterase Negative (Negative) 11/23/24 21:02 Urine RBC 3-5 /hpf (0-2) 11/23/24 21:02 Urine WBC 0-5 /hpf (0-5) 11/23/24 21:02 Ur Squamous Epith Cells 0-5 /hpf (0-5) 11/23/24 21:02 Amorphous Sediment Not Reportable 11/23/24 21:02 Urine Bacteria None seen /hpf (NONE) 11/23/24 21:02 Hyaline Casts 41.35 /lpf 11/23/24 21:02 Urine Opiates Screen Negative ng/mL (Negative) 11/23/24 21:02 Ur Barbiturates Screen Negative ng/mL (Negative) 11/23/24 21:02 Ur Phencyclidine Scrn Negative ng/mL (Negative) 11/23/24 21:02 Ur Amphetamines Screen Negative ng/mL (Negative) 11/23/24 21:02 U Benzodiazepines Scrn Negative ng/mL (Negative) 11/23/24 21:02 Urine Cocaine Screen Negative ng/mL (Negative) 11/23/24 21:02 U Marijuana (THC) Screen Negative ng/mL (Negative) 11/23/24 21:02 Ethyl Alcohol < 10 mg/dL (0-10) 11/23/24 19:54 Coronavirus (PCR) Negative (Negative) 11/23/24 19:24 Influenza A (PCR) Negative (Negative) 11/23/24 19:24 Influenza Type B (PCR) Negative (Negative) 11/23/24 19:24 RSV (PCR) Negative (Negative) 11/23/24 19:24 Discharge Plan Discharge Patient Disposition: Admitted As Inpatient Admit Provider: Aixa Beck Clinical Impression: Pakistani speaking patient, Noncompliance, Alcohol abuse, Gastroenteritis, Diabetic peripheral neuropathy associated with type 2 diabetes mellitus Condition: Stable Coding Level of Care Code ED [employer] Coordinator for Kimmie Holloway
[2024-11-23 21:10] LABS: Bilirubin Urine Negative (Negative); Blood Urine 1+ (Negative); Glucose Urine UA Negative (Normal); Ketones Urine 1+ (Negative); Leukocyte Esterase Urine Negative (Negative); Nitrate Urine Negative (Negative); Protein Urine 1+ (Negative); Urine Appearance Clear (CLEAR)
[2024-11-23 21:12] LABS: Add Urine Microscopic? YES; Bacteria Urine None Seen /hpf; Hyaline Casts Urine 41.35 /lpf; Squamous Epithelial Cell Urine 0-5 /hpf (0-5); WBC Urine 0-5 /hpf (0-5)
[2024-11-23 21:17] LABS: Amphetamines Screen Urine Negative (Negative); Barbiturates Screen Urine Negative (Negative); Benzodiazepines Screen Urine Negative (Negative); Cocaine Screen Urine Negative (Negative); Opiate Screen Urine Negative (Negative); PCP Screen Urine Negative (Negative); THC Screen Urine Negative (Negative)
[2024-11-23 21:20] LABS: Alcohol Level < 10 mg/dL (0-10)
[2024-11-23 21:26] LABS: Urine Color Dark Yellow (Yellow)
[2024-11-23 21:27] LABS: UA Slide Review UA Slide Review Perf
[2024-11-23 21:39] LABS: Reflex Lactate Order REFLEX LACTIC ORDERD
[2024-11-23 21:55] LABS: Lactic Acid level (Lactate) 3.5 mmol/L (0.5-2.2)
--- NOTE | 2024-11-23 22:20 | USR_ITS ---
PROCEDURE INFORMATION: Exam: US Duplex Artery or Vein of the Abdominal and/or Reproductive Organs, Limited Liver Exam date and time: 11/23/2024 10:49 PM Clinical indication: Other: Elevated lfts, n+v TECHNIQUE: Imaging protocol: Real-time duplex ultrasound scan of the arterial or venous flow with color Doppler flow and spectral waveform analysis with image documentation. Limited Duplex exam focused on the liver and portal venous system. Duplex exam was performed to evaluate for vascular conditions. COMPARISON: No relevant prior studies available. FINDINGS: Portal venous: Patent. Normal waveforms. Normal hepatopetal (towards the liver) flow. Hepatic artery: Not evaluated. PROCEDURE INFORMATION: Exam: US Abdomen, Limited; Right Upper Quadrant Exam date and time: 11/23/2024 10:49 PM Age: 54 years old Clinical indication: Other: Elevated lfts, n+v. Abdominal pain. TECHNIQUE: Imaging protocol: Real time ultrasound of the abdomen with image documentation. Limited exam focused on the right upper quadrant. COMPARISON: CT abdomen pelvis w con* [id number] 11/23/2024 8:10 PM FINDINGS: Liver: There is diffuse increased echogenicity of the hepatic parenchyma consistent with fatty infiltration. No hepatic masses are identified by ultrasound. Gallbladder: Gallstones are identified within the gallbladder. No gallbladder wall thickening. Negative sonographic Waller's sign. Biliary ducts: There is no evidence of intra or extrahepatic ductal dilatation. The common bile duct measures 3 mm. Pancreas: The pancreas is obscured by bowel gas. Right kidney: The right kidney is normal. There is no evidence of renal calcification or hydronephrosis. The right kidney measures 10.4 cm in length. Aorta: The visualized aorta appears within normal limits. Portal venous: The portal vein is patent. US/US gall bladder [id number] IMPRESSION: Unremarkable duplex of the portal vein. IMPRESSION: 1. Fatty liver. 2. Cholelithiasis without evidence of cholecystitis.
--- NOTE | 2024-11-23 22:24 | XRR_ITS ---
PROCEDURE INFORMATION: Exam: XR Chest Exam date and time: 11/23/2024 11:25 PM Age: 54 years old Clinical indication: Cough and other: Tacchycardia TECHNIQUE: Imaging protocol: Radiologic exam of the chest. Views: 1 view. COMPARISON: CT abdomen pelvis w con* [id number] 11/23/2024 8:10 PM FINDINGS: Lungs: Left basilar atelectasis and/or scarring. No pulmonary consolidation. Pleural spaces: No pleural effusion or pneumothorax. Heart/Mediastinum: The cardiomediastinal silhouette is within normal limits. Bones/joints: No acute osseous abnormalities are seen. XR/XR chest 1V portable [id number] IMPRESSION: No acute cardiopulmonary disease.
--- NOTE | 2024-11-23 22:24 | ECG_ITS ---
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 Measurements Intervals [place] Rate: 114 P: 38 [place]: 138 QRS: 11 QRSD: 90 T: 52 QT: 349 QTc: 482 Interpretive Statements SINUS TACHYCARDIA POSSIBLE LEFT ATRIAL ENLARGEMENT [-0.1mV P-WAVE IN V1/V2] No previous ECG available for comparison Electronically Signed On 11-25-2024 12:31:42 SECURITY SUPPORT ANALYST by Bradly Singh M.D. [email or web address]
[2024-11-23] MEDS: promethazine 25 mg Tablet 12.5 MG PO (22:25)
[2024-11-23 23:12] LABS: Troponin(5th) Baseline 25 ng/L (0-15)
[2024-11-23 23:13] LABS: Troponin 5 2HR 22.03 ng/L (0-15); Troponin 5 2HR Delta -2.97 ABS# (0-10)
--- NOTE | 2024-11-23 23:53 | PM.HP ---
Providers/Chief Complaint Chief Complaint: high sugar History of Present Illness Jamie Swift is a 54 year old male Kiswahili-speaking male, noncompliant, drinks alcohol on daily basis, presented with chief complaint of nausea vomiting. Patient stating that he has been experiencing Jam pain with nausea vomiting for last 48 hours, vomited more than 10 times, drinks heavily on daily basis, does not smoke, does not endorse cocaine or recreational drug use. Does not endorse chest pain. Endorsing subjective fever. Does not take his insulin on daily basis. In the ER patient is tachycardic, dehydrated, CT abdomen pelvis unremarkable other than cholelithiasis, gallbladder ultrasound requested. 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 Schmitt 01/27/2024 Patient is extremely dehydrated with high lactic acid metabolic alkalosis bicarb around 30,, FERNANDEZ, abnormal liver enzymes consistent with alcohol abuse no active chest pain, troponin trending down lipase 57, UA unremarkable drug screen negative, hepatitis panel negative, Review of Systems Const: Reports: fever(s), chills and change in weight Eyes: Denies: change in vision ENMT: Denies: throat pain Card: Denies: chest pain Resp: Denies: dyspnea GI: Reports: abdominal pain, nausea and vomiting : Denies: flank pain Musc: Reports: back pain Medications/Allergies Home Medications Medication Instructions Recorded Confirmed Last Taken Type blood sugar diagnostic (Accu-Chek #100 ea 01/30/24 02/27/24 Unknown Rx Sugey Plus test strips) blood-glucose meter (Accu-Chek #1 ea 01/30/24 02/27/24 Unknown Rx Guide Glucose Meter) cefpodoxime 200 mg tablet 200 mg PO BID #28 tabs 01/30/24 02/27/24 Unknown Rx hydrocodone 5 mg-acetaminophen 325 1 tab PO Q12H PRN Moderate To 01/30/24 02/27/24 Unknown Rx mg tablet Severe Pain #10 tabs insulin glargine 100 unit/mL 35 unit (0.35 mL) SUBCUT BEDTIME 01/30/24 02/27/24 Unknown Rx subcutaneous solution (Lantus #10 mL U-100 Insulin) insulin lispro 100 unit/mL See Rx Instructions .Route 01/30/24 02/27/24 Unknown Rx subcutaneous pen (Humalog KwikPen .COMPLEX #15 mL (U-100) Insulin) lancets (Accu-Chek Fastclix Lancet #200 ea 01/30/24 02/27/24 Unknown Rx Drum) lisinopril 10 mg tablet 10 mg PO DAILY #90 tabs 01/30/24 02/27/24 Unknown Rx magnesium oxide 400 mg (241.3 mg 400 mg PO BID #6 tabs 01/30/24 02/27/24 Unknown Rx magnesium) tablet metformin 1,000 mg tablet 500 mg (1/2 x 1,000 mg) PO BID #60 01/30/24 02/27/24 Unknown Rx tabs pantoprazole 40 mg tablet,delayed 40 mg PO DAILY #10 tabs 01/30/24 02/27/24 Unknown Rx release sennosides 8.6 mg-docusate sodium 1 tab PO DAILY #10 tabs 01/30/24 02/27/24 Unknown Rx 50 mg tablet (Stool Softener-Laxative) sodium di- and 1 tab PO BID #6 tabs 01/30/24 02/27/24 Unknown Rx monophosphate-potassium phos monobasic 250 mg tablet (Phospha Neutral) Crutches #1 ea 02/05/24 02/27/24 Unknown Rx ondansetron HCl 4 mg tablet 4 mg PO Q8H PRN nausea and 08/27/24 Unknown Rx vomiting #14 tabs potassium chloride 20 mEq 20 meq PO BID #14 tabs 08/27/24 Unknown Rx tablet,extended release Allergies Allergy/AdvReac Type Severity Reaction Status Date / Time No Known Allergies Allergy Verified 11/23/24 17:21 PFSH Acute PFSH: Medical History Diabetic peripheral neuropathy associated with type 2 diabetes mellitus Diabetes mellitus type II, uncontrolled Kiswahili speaking patient Dental caries Peripheral vascular disease due to secondary diabetes Cellulitis of right foot Diabetic wet gangrene of the foot Surgical History Status post amputation of toe of right foot 2021 2nd digit right foot Family History Other Cancer Social History Smoking and tobacco/nicotine status: never used tobacco/nicotine Alcohol intake: former Former alcohol use details: quit drinking heavily in Nov 2023 Substance/Drug Use: never Additional social history: Does not speak Faroese Vitals/I&O/Wt Last Vital Signs Temp 98.1 F 11/23/24 17:10 Pulse 112 H 11/23/24 22:11 BP 156/103 11/23/24 22:11 Pulse Ox 93 11/23/24 22:11 O2 Del Method Room Air 11/23/24 22:11 11/23/24 11/23/24 11/24/24 14:59 22:59 06:59 Intake Total 1000 / 1000 Balance 1000 / 1000 Weight last 48 hrs Weight 54.431 kg Physical Exam Narrative: Patient is awake and alert Kiswahili-speaking Currently room air Tachycardic, S1, S2 Clinical sign of dehydration Tender abdomen midepigastric region and right upper quadrant GCS 15 Nonfocal neuroexam Friend is at the bedside Patient not endorsing active chest pain or shortness of breath Currently on room air Hemodynamically stable Data 11/23/24 18:47 11/23/24 18:47 A&P Assessment and plan (1) Noncompliance: (2) Diabetes mellitus type II, uncontrolled: Qualifiers: Glycemic state: with hyperglycemia Qualified Code(s): E11.65 - Type 2 diabetes mellitus with hyperglycemia (3) Diabetic peripheral neuropathy associated with type 2 diabetes mellitus: (4) Alcohol abuse: (5) Gastroenteritis: Plan Recurrent nausea vomiting Noncompliant with diabetic regimen Daily heavy drinker of alcohol Start [facility] protocol Practice diet IV fluid hydration Drug screen negative Troponin trending down no active chest pain Alcohol-related abnormal liver enzymes: Start [facility] protocol Dehydration related high lactic acid I do not see any active signs of infection Gallbladder stone pending Afebrile at this point Hemodynamic stable Continue IV fluids FERNANDEZ related to dehydration and nephrotoxic agents: Continue IV fluids anticipate improvement UA does not show any signs of UTI Check magnesium, phosphorus level and A1c Patient is noncompliant Brat diet DVT prophylaxis: Heparin Rhia by profession sign language interpreter used in the ER Attestations Medical Necessity Statement*: Anticipating discharge once able to tolerate diet likely in 48 hours Diagnoses Noncompliance Z91.199 Uncontrolled type 2 diabetes mellitus with hyperglycemia E11.65 Glycemic state: with hyperglycemia Diabetic peripheral neuropathy associated with type 2 diabetes mellitus E11.42 Alcohol abuse F10.10 Gastroenteritis K52.9
[2024-11-24] VITALS (10 sets, daily range): BP systolic 106–166; BP diastolic 76–103; PULSE 105–113; RESP 15–20; TEMP 36.6–37.7; O2SAT 90–98
[2024-11-24] MEDS: ondansetron 2 mg/ML SDV 2 mL 4 MG IVP (00:53)
[2024-11-24] MEDS: HYDROmorphone 1 mg/mL INJ 1 mL 0.4 MG IVP (00:58)
[2024-11-24] MEDS: sodium chloride 0.9% 1,000 ML 125 ML IV ×3 (02:06→21:21)
[2024-11-24] MEDS: heparin 5,000 unit/mL INJ 1 mL 5000 UNIT SUBCUT ×2 (02:07→12:32)
[2024-11-24 02:11] LABS: Glucose Point of Care 153 mg/dL (70-110)
--- NOTE | 2024-11-24 02:35 | PC.NURSE ---
Addendum entered by Siri Bolden RN 11/24/24 02:50: Notified Dr. Beck of patient status via VOAL[employer] messenger at [phone]. Original Note: Nurse to room to perform admission assessments and administer medication to patient with [place]-speaking Language Line jumpbasting armhole baster on phone call. The patient correctly stated his full name and birthday, but was unable to tell me where he was or why. He was unable to answer questions appropriately, had mumbled speech and occasionally stated answers unrelated to the question asked entirely. He was not oriented to date, time, year, place, or situation. His speech was somewhat mumbled or slurred, prompting the jumpbasting armhole baster to ask the patient to repeat his answers several times. At the end of the assessment, the patient stated he wanted to go home.
[2024-11-24 04:49] LABS: Basophils % 0.1 %; Lymphocytes # 0.9 10^3/uL (0.8-4.8); Lymphocytes % 7.7 %; Mean Corpuscular HGB Conc 32.5 g/dL (30-55); Mean Corpuscular Hemoglobin 28.6 pg (27-33); Mean Corpuscular Volume 87.9 fl (82-101); Mean Platelet Volume 9.9 fL (7.4-10.4); Monocytes # 1.1 10^3/uL (0.2-0.9); Monocytes % 9.2 %; Neutrophils # 9.71 10^3/uL (1.8-7.7); Neutrophils % 82.7 %; Nucleated Red Blood Cells % 0 %; Platelet Count 54 10^3/cmm (157-399); Red Blood Count 4.55 10^6/uL (3.85-5.65); Red Cell Distribution Width 13.2 % (12.1-15.1); White Blood Count 11.74 10^3/uL (3.29-11.43)
[2024-11-24 05:05] LABS: Estmated Average Glucose 143; Hemoglobin A1C 6.6 % (4.0-6.0)
[2024-11-24 05:21] LABS: Alanine Aminotransferase 37 U/L (0-41); Albumin Level 3.9 g/dL (3.5-5.2); Alkaline Phosphatase 124 U/L (40-130); Anion Gap 21.4 (5-19); Aspartate Amino Transferase 112 U/L (0-40); Blood Urea Nitrogen 24 mg/dL (6-20); Calcium 8.6 mg/dL (8.5-10.5); Carbon Dioxide 25 mmol/L (22-29); Chloride 102 mmol/L (98-107); Creatinine Clr Calc Pharmacy 61.1825; Globulin 3.5 g/dL (1.3-4.6); Glomerular Filtration Rate 69.8 mL/min (90-130); Glucose 173 mg/dL (65-115); Magnesium 1.8 mg/dL (1.7-2.3); Osmolality Calculated 308 mOsm/kg (285-295); Phosphorus 3.8 mg/dL (2.5-4.5); Potassium 3.4 mmol/L (3.5-5.1); Sodium 145 mmol/L (136-145); Total Bilirubin 1.5 mg/dL (0.15-1.2); Total Protein 7.4 g/dL (6.6-8.7)
[2024-11-24 05:23] LABS: Lactic Sepsis W/Reflex 2.3 mmol/L (0.5-2.2)
[2024-11-24 06:30] LABS: Glucose Point of Care 161 mg/dL (70-110)
[2024-11-24 06:33] LABS: Reflex Lactate Order REFLEX LACTIC ORDERD
[2024-11-24 08:08] LABS: Lactic Acid level (Lactate) 2.3 mmol/L (0.5-2.2)
--- NOTE | 2024-11-24 08:57 | PC.PHAR ---
Pt still in a confused state of mind. Unable to verify medications with pharmacy due to holiday status. Med rec completed with last fill dates and days supply. [facility] fill [facility] was 01/30/24. Unable to find anything filled since then except:Zofran 4mg and Potassium chloride 20meq-last filled 08/27/24.
--- NOTE | 2024-11-24 09:44 | PM.PN ---
Subjective Subjective: Seen this morning. Patient states he feels slightly better. Vitals/I&O/Wt Last Vital Signs Temp 98.3 F 11/24/24 08:00 Pulse 111 H 11/24/24 08:00 Resp 17 11/24/24 08:00 BP 157/80 11/24/24 08:00 Pulse Ox 95 11/24/24 08:00 O2 Del Method Room Air 11/24/24 08:00 11/23/24 11/24/24 11/24/24 22:59 06:59 14:59 Intake Total 1000 / 1000 1000 / 2000 Output Total 700 / 700 240 / 240 Balance 1000 / 1000 300 / 1300 -240 / -240 Weight last 48 hrs Weight 65.862 kg Weight 54.431 kg Physical Exam Narrative: Patient is awake and alert Belgian-speaking Currently room air Nontender abdomen. Abdomen soft. GCS 15 Nonfocal neuroexam Friend is at the bedside Patient not endorsing active chest pain or shortness of breath Currently on room air Hemodynamically stable Data 11/24/24 04:41 11/24/24 04:41 A&P Assessment and plan (1) Noncompliance: (2) Diabetes mellitus type II, uncontrolled: Qualifiers: Glycemic state: with hyperglycemia Qualified Code(s): E11.65 - Type 2 diabetes mellitus with hyperglycemia (3) Diabetic peripheral neuropathy associated with type 2 diabetes mellitus: (4) Alcohol abuse: (5) Gastroenteritis: Plan Recurrent nausea vomiting Noncompliant with diabetic regimen Daily heavy drinker of alcohol Start [facility] protocol Practice diet IV fluid hydration Drug screen negative Troponin trending down no active chest pain Alcohol-related abnormal liver enzymes: Start [facility] protocol Dehydration related high lactic acid I do not see any active signs of infection Gallbladder stone pending Afebrile at this point Hemodynamic stable Continue IV fluids FERNANDEZ related to dehydration and nephrotoxic agents: Continue IV fluids anticipate improvement UA does not show any signs of UTI Check magnesium, phosphorus level and A1c Patient is noncompliant Brat diet DVT prophylaxis: Heparin Pecan Mallow Dipper by profession block breaker used in the ER 11/24/2024 -Continue IV fluids at this time. Continue management as per H&P. ? No changes to orders today. ? Recheck labs in a.m., recheck lactic acid at 4 PM. ? Continue on brat diet. ? Continue [facility] protocol Attestations Medical Necessity Statement*: Anticipating discharge once able to tolerate diet likely in 48 hours Diagnoses Noncompliance Z91.199 Uncontrolled type 2 diabetes mellitus with hyperglycemia E11.65 Glycemic state: with hyperglycemia Diabetic peripheral neuropathy associated with type 2 diabetes mellitus E11.42 Alcohol abuse F10.10 Gastroenteritis K52.9
[2024-11-24] MEDS: insulin lispro 100 unit/1 mL SUBCUT ×3 (09:58→17:14)
[2024-11-24] MEDS: thiamine 100 mg Tablet PO (09:58)
[2024-11-24] MEDS: folic acid 1 mg Tablet PO (09:58)
[2024-11-24] MEDS: magnesium oxide 400 mg tablet PO (09:58)
[2024-11-24] MEDS: multivitamin therapeutic Tablet 1 TAB PO (09:58)
[2024-11-24] MEDS: pantoprazole DR 40 mg Tablet PO (09:58)
[2024-11-24 12:15] LABS: Glucose Point of Care 159 mg/dL (70-110)
[2024-11-24 16:22] LABS: Lactate (Lactic Acid level) 1.6 mmol/L (0.5-2.2)
[2024-11-24 17:30] LABS: Glucose Point of Care 145 mg/dL (70-110)
[2024-11-24 17:45] LABS: Glucose Point of Care 142 mg/dL (70-110)
[2024-11-24 20:57] LABS: Glucose Point of Care 147 mg/dL (70-110)
[2024-11-24] MEDS: insulin glargine 100 units/1 mL 20 UNIT SUBCUT (21:21)
--- NOTE | 2024-11-24 21:35 | PC.NURSE ---
Assessments and medication administration performed with the assistance of Language Line cooker mechanic.
[2024-11-25] VITALS: BP 142/95; PULSE 104; RESP 16; TEMP 37; O2SAT 96
[2024-11-25] MEDS: heparin 5,000 unit/mL INJ 1 mL 5000 UNIT SUBCUT ×2 (03:17→12:07)
[2024-11-25 04:00] VITALS: BP 176/95; PULSE 103; RESP 15; TEMP 37.2; O2SAT 92
[2024-11-25 04:46] LABS: Basophils % 0.1 %; Lymphocytes % 13.9 %; Mean Corpuscular HGB Conc 32.7 g/dL (30-55); Mean Corpuscular Hemoglobin 28.7 pg (27-33); Mean Corpuscular Volume 87.9 fl (82-101); Mean Platelet Volume 10.3 fL (7.4-10.4); Monocytes % 13.4 %; Neutrophils % 72.2 %; Nucleated Red Blood Cells % 0 %; Platelet Count 58 10^3/cmm (157-399); Red Blood Count 4.21 10^6/uL (3.85-5.65); Red Cell Distribution Width 12.9 % (12.1-15.1); White Blood Count 7.07 10^3/uL (3.29-11.43)
[2024-11-25 05:07] LABS: Alanine Aminotransferase 40 U/L (0-41); Albumin Level 3.7 g/dL (3.5-5.2); Alkaline Phosphatase 107 U/L (40-130); Aspartate Amino Transferase 119 U/L (0-40); Blood Urea Nitrogen 15 mg/dL (6-20); Calcium 8.6 mg/dL (8.5-10.5); Carbon Dioxide 28 mmol/L (22-29); Chloride 97 mmol/L (98-107); Creatinine Clr Calc Pharmacy 96.1439; Globulin 3.6 g/dL (1.3-4.6); Glomerular Filtration Rate 117.5 mL/min (90-130); Glucose 145 mg/dL (65-115); Magnesium 1.6 mg/dL (1.7-2.3); Osmolality Calculated 291 mOsm/kg (285-295); Sodium 139 mmol/L (136-145); Total Bilirubin 1.5 mg/dL (0.15-1.2); Total Protein 7.3 g/dL (6.6-8.7)
[2024-11-25 05:22] LABS: Anion Gap 16.9 (5-19)
[2024-11-25 05:23] LABS: Potassium 2.9 mmol/L (3.5-5.1)
--- NOTE | 2024-11-25 06:25 | PC.NURSE ---
Patient removed his own IV that had been placed upon admission. IV replaced, then infiltrated. IV removed and replaced in another spot. Patient then tampered with IV, causing IV catheter to poke through venaguard. aware.
[2024-11-25 06:47] LABS: Glucose Point of Care 130 mg/dL (70-110)
[2024-11-25] MEDS: magnesium oxide 400 mg tablet PO (07:55)
[2024-11-25] MEDS: potassium chloride ER 20 mEq Tablet 80 MEQ PO (07:55)
[2024-11-25] MEDS: pantoprazole DR 40 mg Tablet PO (07:55)
[2024-11-25] MEDS: multivitamin therapeutic Tablet 1 TAB PO (07:55)
[2024-11-25] MEDS: thiamine 100 mg Tablet PO (07:56)
[2024-11-25] MEDS: folic acid 1 mg Tablet PO (07:56)
[2024-11-25 08:11] VITALS: BP 163/98; PULSE 98; RESP 18; TEMP 36.8; O2SAT 96
[2024-11-25 11:14] LABS: Glucose Point of Care 153 mg/dL (70-110)
[2024-11-25 11:36] VITALS: BP 157/98; PULSE 100; RESP 18; TEMP 36.6; O2SAT 96
[2024-11-25] MEDS: insulin lispro 100 unit/1 mL SUBCUT (12:06)
--- NOTE | 2024-11-25 14:11 | PM.DCS ---
Discharge Providers Date of Admission: 11/24/24 00:26 Date of Discharge: November 25, 2024 Attending Provider at Admission: Aixa Beck MD Attending Provider at Discharge: Clara Blum MD Diagnoses at Discharge Discharge Diagnosis (1) Noncompliance: Status: Acute (2) Diabetes mellitus type II, uncontrolled: Status: Acute Qualifiers: Glycemic state: with hyperglycemia Qualified Code(s): E11.65 - Type 2 diabetes mellitus with hyperglycemia (3) Diabetic peripheral neuropathy associated with type 2 diabetes mellitus: Status: Acute (4) Alcohol abuse: Status: Acute (5) Gastroenteritis: Status: Resolved Reason for Visit Reason for Visit: high sugar Hospital Course Hospital Course Telugu-speaking male noncompliant alcohol drinker presented to the hospital with nausea vomiting. He drinks daily and was dehydrated with high lactic acidosis on admission. The abnormal liver enzymes which did trend down eventually. Hepatitis panel negative, unremarkable drug screen. Patient was kept on CIWA protocol and given IV fluids. Ultrasound abdomen ruled out gallstones. Secondary admission patient requested to go home. He states that he feels well and is back to his normal self. nausea vomiting stopped. He felt better. Physical Exam Narrative: Patient is awake and alert Telugu-speaking Currently room air Nontender abdomen. Abdomen soft. GCS 15 Nonfocal neuroexam Patient not endorsing active chest pain or shortness of breath Currently on room air Hemodynamically stable Discharge Data Studies Completed and Pending Completed Studies During Hospitalization Category Date Time Status CT abdomen pelvis w con* [id number] Stat Cat Scan 11/23/24 19:39 Completed XR chest 1V portable [id number] Stat Exams 11/23/24 22:24 Completed US gall bladder [id number] Stat Ultrasound 11/23/24 22:20 Completed Radiology Impressions Abdomen/Pelvis CT 11/23/24 19:39 IMPRESSION: 1. No acute findings. 2. Cholelithiasis 3. Prostate enlargement with chronic bladder wall thickening Gallbladder Ultrasound 11/23/24 22:20 IMPRESSION: Unremarkable duplex of the portal vein. IMPRESSION: 1. Fatty liver. 2. Cholelithiasis without evidence of cholecystitis. Chest X-Ray 11/23/24 22:24 IMPRESSION: No acute cardiopulmonary disease. Laboratory Results WBC 7.07 10^3/uL (3.29-11.43) 11/25/24 03:47 RBC 4.21 10^6/uL (3.85-5.65) 11/25/24 03:47 Hgb 12.10 g/dL (11.27-16.99) 11/25/24 03:47 Hct 37.0 % (37-53) 11/25/24 03:47 MCV 87.9 fl (82-101) 11/25/24 03:47 MCH 28.7 pg (27-33) 11/25/24 03:47 MCHC 32.7 g/dL (30-55) 11/25/24 03:47 RDW 12.9 % (12.1-15.1) 11/25/24 03:47 Plt Count 58 10^3/cmm (157-399) L 11/25/24 03:47 MPV 10.3 fL (7.4-10.4) 11/25/24 03:47 Neut % (Auto) 72.2 % 11/25/24 03:47 Lymph % (Auto) 13.9 % 11/25/24 03:47 Blair % (Auto) 13.4 % 11/25/24 03:47 Eos % (Auto) 0.0 % 11/25/24 03:47 Baso % (Auto) 0.1 % 11/25/24 03:47 Neut # (Auto) 5.10 10^3/uL (1.8-7.7) 11/25/24 03:47 Lymph # (Auto) 1.0 10^3/uL (0.8-4.8) 11/25/24 03:47 Blair # (Auto) 1.0 10^3/uL (0.2-0.9) H 11/25/24 03:47 Eos # (Auto) 0.0 10^3/uL (0.0-0.8) 11/25/24 03:47 Baso # (Auto) 0.0 10^3/uL (0.0-0.1) 11/25/24 03:47 Nucleated RBC % (auto) 0 % 11/25/24 03:47 Nucleated RBCs # 0.0 /100WBC 11/25/24 03:47 Sodium 139 mmol/L (136-145) 11/25/24 03:47 Potassium 2.9 mmol/L (3.5-5.1) L 11/25/24 03:47 Chloride 97 mmol/L (98-107) L 11/25/24 03:47 Carbon Dioxide 28 mmol/L (22-29) 11/25/24 03:47 Anion Gap 16.9 (5-19) 11/25/24 03:47 BUN 15 mg/dL (6-20) 11/25/24 03:47 Creatinine 0.7 mg/dL (0.7-1.2) 11/25/24 03:47 GFR Calculation 117.5 mL/min (90-130) 11/25/24 03:47 Glucose 145 mg/dL (65-115) H 11/25/24 03:47 POC Glucose 153 mg/dL (70-110) H 11/25/24 11:09 Estimat Average Glucose 143 11/24/24 04:41 Hemoglobin A1c 6.6 % (4.0-6.0) H 11/24/24 04:41 Calculated Osmolality 291 mOsm/kg (285-295) 11/25/24 03:47 Lactic Acid 2.3 mmol/L (0.5-2.2) H 11/24/24 04:41 Lactic Acid (Sepsis) 2.3 mmol/L (0.5-2.2) H 11/24/24 07:41 Lactate 1.6 mmol/L (0.5-2.2) 11/24/24 15:58 Calcium 8.6 mg/dL (8.5-10.5) 11/25/24 03:47 Phosphorus 3.8 mg/dL (2.5-4.5) 11/24/24 04:41 Magnesium 1.6 mg/dL (1.7-2.3) L 11/25/24 03:47 Total Bilirubin 1.5 mg/dL (0.15-1.2) H 11/25/24 03:47 AST 119 U/L (0-40) H 11/25/24 03:47 ALT 40 U/L (0-41) 11/25/24 03:47 Alkaline Phosphatase 107 U/L (40-130) 11/25/24 03:47 Troponin T Baseline 25 ng/L (0-15) H 11/23/24 19:54 Troponin T 120 Minute 22.03 ng/L (0-15) H 11/23/24 22:45 Delta Troponin T -2.97 ABS# (0-10) L 11/23/24 22:45 C-Reactive Protein 3.0 mg/L (0.0-4.9) 11/24/24 04:41 Total Protein 7.3 g/dL (6.6-8.7) 11/25/24 03:47 Albumin 3.7 g/dL (3.5-5.2) 11/25/24 03:47 Globulin 3.6 g/dL (1.3-4.6) 11/25/24 03:47 Lipase 57 U/L (13-60) 11/23/24 18:47 Urine Color Dark yellow (Yellow) A 11/23/24 21: Urine Appearance Clear (CLEAR) 11/23/24 21: Urine pH 6.0 (5-7) 11/23/24 21: Ur Specific [place] 1.050 (1.005-1.030) H 11/23/24 21:02 Urine Protein 1+ (Negative) A 11/23/24 21: Urine Glucose (UA) Negative (Normal) 11/23/24 21: Urine Ketones 1+ (Negative) H 11/23/24 21: Urine Blood 1+ (Negative) A 11/23/24 21: Urine Nitrate Negative (Negative) 11/23/24 21: Urine Bilirubin Negative (Negative) 11/23/24 21: Urine Urobilinogen 1.0 mg/dL (Negative) 11/23/24 21: Ur Leukocyte Esterase Negative (Negative) 11/23/24 21: Urine RBC 3-5 /hpf (0-2) 11/23/24 21:02 Urine WBC 0-5 /hpf (0-5) 11/23/24 21:02 Ur Squamous Epith Cells 0-5 /hpf (0-5) 11/23/24 21: Amorphous Sediment Not Reportable 11/23/24 21: Urine Bacteria None seen /hpf (NONE) 11/23/24 21: Hyaline Casts 41.35 /lpf 11/23/24 21:02 Urine Opiates Screen Negative ng/mL (Negative) 11/23/24 21: Ur Barbiturates Screen Negative ng/mL (Negative) 11/23/24 21:02 Ur Phencyclidine Scrn Negative ng/mL (Negative) 11/23/24 21:02 Ur Amphetamines Screen Negative ng/mL (Negative) 11/23/24 21:02 U Benzodiazepines Scrn Negative ng/mL (Negative) 11/23/24 21:02 Urine Cocaine Screen Negative ng/mL (Negative) 11/23/24 21:02 U Marijuana (THC) Screen Negative ng/mL (Negative) 11/23/24 21:02 Ethyl Alcohol < 10 mg/dL (0-10) 11/23/24 19:54 Coronavirus (PCR) Negative (Negative) 11/23/24 19:24 Influenza A (PCR) Negative (Negative) 11/23/24 19:24 Influenza Type B (PCR) Negative (Negative) 11/23/24 19:24 RSV (PCR) Negative (Negative) 11/23/24 19:24 Vitals Last Vital Signs Temp 98 F 11/25/24 11:36 Pulse 100 11/25/24 11:36 Resp 18 11/25/24 11:36 BP 157/98 11/25/24 11:36 Pulse Ox 96 11/25/24 11:36 O2 Del Method Room Air 11/25/24 11:36 Discharge Plan Discharge Patient Disposition: Home Condition: Stable Prescriptions: New folic acid 1 mg Tablet 1 mg PO DAILY Qty: 30 0RF thiamine mononitrate (vit B1) [Vitamin B-1 (mononitrate)] 100 mg Tablet 100 mg PO DAILY Qty: 30 0RF Continued (DME) Crutches See Rx Instructions .Route .MEDSUPPLY Qty: 1 0RF Rx Instructions: As directed ondansetron HCl 4 mg tablet 4 mg PO Q8H PRN (Reason: nausea and vomiting) Qty: 14 0RF potassium chloride 20 mEq tablet extended release 20 meq PO BID Qty: 14 0RF sennosides-docusate sodium [Stool Softener-Laxative] 8.6-50 mg Tablet 1 tab PO DAILY Qty: 10 0RF magnesium oxide 400 mg (241.3 mg magnesium) Tablet 400 mg PO BID Qty: 6 0RF pantoprazole 40 mg Tablet,Delayed Release (Dr/Ec) 40 mg PO DAILY Qty: 10 0RF insulin lispro [Humalog KwikPen Insulin] 100 unit/mL insulin pen See Rx Instructions .ROUTE .COMPLEX Qty: 15 7RF Rx Instructions: Medium dose sliding scale Maximum in a day 12U metformin 1,000 mg tablet 500 mg PO BID Qty: 60 5RF lisinopril 10 mg tablet 10 mg PO DAILY Qty: 90 5RF (DME) lancets [Accu-Chek Fastclix Lancet Drum] Misc See Rx Instructions .Route Qty: 200 3RF Rx Instructions: As directed (DME) Accu-Chek Sugey Plus test strp Strip See Rx Instructions .Route Qty: 100 4RF Rx Instructions: As directed (DME) blood-glucose meter [Accu-Chek Guide Glucose Meter] Misc See Rx Instructions .Route Qty: 1 0RF Rx Instructions: As directed Changed insulin glargine [Lantus U-100 Insulin] 100 unit/mL Solution 20 unit SUBCUT BEDTIME Qty: 10 7RF Held Phospha 250 Neutral 250 mg Tablet 1 tab PO BID Qty: 6 0RF Hold Instructions: see pcp Discharge Orders: Discharge Order (Routine); Ordered 11/25/24 Ordered By: Clara Blum Discharge Diet: Advance as tolerated Discharge Activity: Resume usual activity Patient Instructions: Thiamine (By mouth), Folic Acid (By mouth), Abuse of Alcohol (DC), Opioid Safety Discharge Attestations Time Spent in Discharge Care*: less than 30 min Quality Metrics Clinical Quality Measures [ No reported AMI, CVA or VTE this stay] Coding Level of Care Code Acute Code for Chg Fwd Diagnoses Noncompliance Z91.199 Uncontrolled type 2 diabetes mellitus with hyperglycemia E11.65 Glycemic state: with hyperglycemia Diabetic peripheral neuropathy associated with type 2 diabetes mellitus E11.42 Alcohol abuse F10.10 Gastroenteritis K52.9
[2024-11-25 15:32] VITALS: BP 157/98; PULSE 100; RESP 18; TEMP 36.6; O2SAT 96
== END 2024-11-25 15:35 | disposition home or self-care (01) ==
LOC: ER 20:20 → MEDSURG 11-24 00:26
PROVIDERS: Physician Assistant; Admitting Provider Internal Medicine; Emergency Provider Emergency Medicine; Visit Provider Internal Medicine
DX: K52.9 Noninfective gastroenteritis and colitis, unspecified (principal); F10.10 Alcohol abuse, uncomplicated; E11.42 Type 2 diabetes mellitus with diabetic polyneuropathy; E11.65 Type 2 diabetes mellitus with hyperglycemia; Z91.199 Patient's noncompliance with other medical treatment and regimen due to unspecified reason; E86.0 Dehydration; E87.3 Alkalosis; N17.9 Acute kidney failure, unspecified; Z79.4 Long term (current) use of insulin
CPT/HCPCS: 36415; 36416; 71045; 74177; 76705; 80053; 80306; 80307; 81001; 82962; 83036; 83605; 83690; 83735; 84100; 84484; 85025; 86140; 87637; 93005; 96361; 96372; 96374; 96375; 96376; 99232; 99285; G0378; J1171; J1644; J1815; J2405; J3411; J7030; Q0169